=== PATIENT | female | born 1985 | race Hispanic/Latino ===

== ENCOUNTER 2021-06-16 09:33 | Emergency (ER) | payer BC ==
--- OUTSIDE RECORDS SUMMARY | 2021-06-16 09:41 | XMS REPORT | Continuity of Care Document ---
:1985 Author Organization [facility] t Address [address] [place] [address] Care Team Providers Name Role Phone Jo Ann Christine MD Attending Clinician Fazal Thompson Attending Clinician Payers Payer Name Policy Type Policy Number Effective Date Expiration Date Kecia BRIAN O [id number] 2015 00:00:00 Problems Condition Condition Condition Status Onset Resolution Last Treating Co mments Source Name Details Category Date Date Treatment Clinician Date Prediabete Prediabete Disease Active U nivers s s 7-27 ity of 00:00: [address] Cellulitis Cellulitis Disease Active U nivers 7-18 ity of 00:00: [address] Obesity Obesity Disease Active Univers 7-18 ity of 00:00: [address] Fever Fever Disease Active Univers 7-17 ity of 00:00: [address] Allergies, Adverse Reactions, Alerts Allergy Allergy Status Severity Reaction(s) Onset Inactive Treating Comm ents Source Name Type Date Date Clinician NO KNOWN Drug Active Univers ALLERGIE Class ity of S [facility] Social History Social Habit Start Date Stop Date Quantity Comments Source Exposure to Not sure [facility] SARS-CoV-2 [facility] (event) Branch Tobacco use and 2020-09-25 2020-09-25 Never used Universit y of exposure 00:00:00 00:00:00 [facility] Alcohol intake 2020-09-25 2020-09-25 Current University of 00:00:00 00:00:00 non-drinker of [facility] alcohol Branch (finding) Sex Ass[birth year] At [birth year] Universit y of 00:00:00 00:00:00 [facility] Smoking Status Start Date Stop Date Source Never smoker [facility] Medications Ordered Filled Start Stop Current Ordering Indication Dosage Frequency Signature Comments Components Source Medication Medication Date Date Medication? Clinician (SIG) Name Name cefTRIAXone 2020- No 1000mg 1,000 mg, Univers (ROCEPHIN) 09-26-16 IV ity of 1,000 mg in 02:30: 14:29 [facility], [place] NaCl 0.9% 00 :00 ONCE, 1 Medical (NS) 50 mL dose, [facility] ch MINI-BAG 09/25/20 at 2130, 50 mL
Reas on for Anti-Infec tive: Documented Infection< br>Documen tre Infection Site: Urine
D uration of Therapy: 7 days NaCl 0.9% 2020- No 1000mL at 999 Uni vers (NS) bolus 09-25-16 mL/hr, ity of infusion 23:00: 01:27 1,000 mL, [place] as 1,000 mL 00 :00 IV Medical Infusion, Branch ONCE, 1 dose, Nguyen 09/25/20 at 1800, WILD cefdinir 2020- No [id number] 300mg Take 1 Univers 300 mg 09-25 capsule by ity of capsule 00:00: 04:59 mouth 2 [place] 00 :00 (two) Medical times [place] daily for 7 days. sulfamethox 2018- Yes 1{tbl} Take 1 Un meme azole-trime 7-07 tablet by ity of thoprim 00:00: mouth [place] 800-160 mg 00 every 12 Medic al per tablet (twelve) Branc h hours. silver 2018-0 Yes Apply to [facility] sulfADIAZIN 7-07 area(s) 2 ity of E 1 % cream 00:00: (two) [place] 00 times [facility] daily. Branch sulfamethox 2018- Yes 1{tbl} Take 1 Un meme azole-trime 7-07 tablet by ity of thoprim 00:00: mouth [place] 800-160 mg 00 every 12 Medic al per tablet (twelve) Branc h hours. silver 2018-0 Yes Apply to [facility] sulfADIAZIN 7-07 area(s) 2 ity of E 1 % cream 00:00: (two) [place] 00 times Medical daily. Branch ciprofloxac 2018-0 Yes 500mg Take 1 Uni vers in HCl 500 1-25 tablet by ity of mg tablet 00:00: mouth 2 00 (two) Medical times Branch daily. ciprofloxac 2018-0 Yes 500mg Take 1 Uni vers in HCl 500 1-25 tablet by ity of mg tablet 00:00: mouth 2 00 (two) Medical times Branch daily. phenazopyri 2017-0 Yes 200mg Take 1 Uni vers dine 200 mg 7-30 tablet by ity of tablet 00:00: mouth 3 00 (three) Medical times Branch daily. phenazopyri 2017-0 Yes 200mg Take 1 Uni vers dine 200 mg 7-30 tablet by ity of tablet 00:00: mouth 3 00 (three) Medical times Branch daily. Immunizations Ordered Filled Immunization Date Status Comments [facility] e Immunization Name Name SARS-COV-2 COVID-19 2020-11-09 Completed Unive rsity of MODERNA VACCINE 00:00:00 [facility] HEPLISAV HEP B, 2020-01-29 Completed Universit y of ADULT 2 DOSE, IM 00:00:00 [facility] Influenza Virus 2020-01-29 Completed Universit y of Vaccine 00:00:00 [facility] Pneumococcal 2020-01-29 Completed University o f Polysaccharide, 00:00:00 [facility] PPSV23 (PNEUMOVAX) [place] HEPLISAV HEP B, 2020-01-29 Completed Universit y of ADULT 2 DOSE, IM 00:00:00 [facility] Influenza Virus 2020-01-29 Completed Universit y of Vaccine 00:00:00 [facility] Pneumococcal 2020-01-29 Completed University o f Polysaccharide, 00:00:00 [facility] PPSV23 (PNEUMOVAX) Branch Influenza Virus 2019-04-05 Completed Universit y of Vaccine Recomb Quad 00:00:00 [facility] IM, Preserv and ABX Branc h Free 18-64 YRS Influenza Virus 2019-04-05 Completed Universit y of Vaccine Recomb Quad 00:00:00 [facility] IM, Preserv and ABX Branc h Free 18-64 YRS Influenza Virus 2018-02-24 Completed Universit y of Vaccine Quad IM 3+ 00:00:00 [facility] Influenza Virus 2018-02-24 Completed Universit y of Vaccine Quad IM 3+ 00:00:00 [facility] TDAP 2017-05-26 Completed University of 00:00:00 [facility] Influenza Virus 2017-05-26 Completed Universit y of Vaccine Quad IM 3+ 00:00:00 [facility] Influenza Virus 2017-05-26 Completed Universit y of Vaccine 00:00:00 [facility] TDAP 2017-05-26 Completed University of 00:00:00 [facility] Influenza Virus 2017-05-26 Completed Universit y of Vaccine Quad IM 3+ 00:00:00 [facility] Influenza Virus 2017-05-26 Completed Universit y of Vaccine 00:00:00 [facility] Influenza Virus 2016-02-25 Completed Universit y of Vaccine Quad IM 3+ 00:00:00 [facility] Influenza Virus 2016-02-25 Completed Universit y of Vaccine Quad IM 3+ 00:00:00 [facility] Vital Signs Vital Name Observation Time Observation Value Comments Source Systolic blood 2020-09-26 01:51:00 138 mm[Hg] Univer sity of pressure [facility] Diastolic blood 2020-09-26 01:51:00 77 mm[Hg] Unive rsity of pressure [facility] Heart rate 2020-09-26 01:51:00 88 /min [facility] Respiratory rate 2020-09-26 01:51:00 17 /min [facility] Oxygen saturation in 2020-09-26 01:51:00 99 /min [facility] Arterial blood by [facility] Pulse oximetry Branch Body temperature 2020-09-25 22:02:00 36.94 Danya [facility] Body weight 2020-09-25 22:02:00 149.687 kg [facility] BMI 2020-09-25 22:02:00 60.36 kg/m2 [facility] Procedures Procedure Date / Time Performed Performing Clinician Sourc e COMP. METABOLIC PANEL 2020-09-26 00:09:00 Gerardo Evans [facility] ([id number]) [facility] CBC WITH DIFF 2020-09-26 00:09:00 Gerardo Evans [facility] URINALYSIS 2020-09-26 00:09:00 Gerardo Evans [facility] COVID-19 (ID NOW RAPID 2020-09-26 00:09:00 Gerardo Evans [facility] TESTING) [facility] NOTICE OF PRIVACY 2020-09-25 21:56:12 Doctor Unassigned, No Univ [facility] PRACTICES Name Medical Branch Encounters Start End Encounter Admission Attending Care Care Encounter Source Date/Time Date/Time Type Type Clinicians Facility Department ID 2021-04-12 Emergency [facility] [id number] [facility] 13:15:36 ity of [facility] 2020-11-11 2020-11-11 Telephone Christine, [facility] [id number] Univers 00:00:00 00:00:00 Melanie Baxter [id number] ity [facility] [id number] [facility] [id number] Sc dical [address] Building 2020-09-25 2020-09-25 Emergency [facility] [id number] [facility] 17:03:00 20:55:00 Gerardo Baxter [id number] ity of [place] [id number] [facility] [id number] [address] Results Test Description Test Time Test Comments Results Result Comments Source Urinalysis 2020-09-26 00:53:58 Test Item Value Reference Range Interpretation Comme nts APPEARANCE (test code = Hazy Clear A 0265701322) COLOR (test code = 6367697476) Yellow Yellow PH (test code = 6394409793) 4.8-8.0 SP GRAVITY (test code = 1.003-1.030 5332298044) GLU U QUAL (test code = Normal Normal 4865267219) BLOOD (test code = 3948423079) Negative Negative KETONES (test code = 9216202033) Negative Negative PROTEIN (test code = 2887-8) Negative Negative UROBILIN (test code = 4.0 mg/dL Normal A 8536232906) BILIRUBIN (test code = Negative Negative 2656963011) NITRITE (test code = 8719667370) Positive Negative A LEUK SADIE (test code = Negative Negative 4189703089) RBC/HPF (test code = 3335179905) See_Comment [Automated message] The system which ge nerated this result transmit tre reference range: 0 - 3 HP F. The reference range was not used to interpret th is result as normal/abnormal . WBC/HPF (test code = 8622694009) See_Comment H [Automated message] The system which ge nerated this result transmit tre reference range: 0 - 5 HP F. The reference range was not used to interpret th is result as normal/abnormal . BACTERIA (test code = Many Negative A 8963716991) MUCOUS (test code = 3139115950) Slight Negative LPF A AMORPHOUS (test code = Rare Rare HPF 6796062109) SQ EPITH (test code = HPF 1590967370) Lab Interpretation (test code = Abnormal 27736-7) [facility]. METABOLIC PANEL (26513)2020-09-26 00:48:58 Test Item Value Reference Range Interpretation Comments NA (test code = 144 mmol/L 135-145 4595631499) K (test code = 3.5 mmol/L 3.5-5.0 9778585278) CL (test code = 107 mmol/L 98-108 2193498944) CO2 TOTAL (test code = 30 mmol/L 23-31 9171231209) AGAP (test code = 2-16 1395772239) BUN (test code = 12 mg/dL 7-23 5824991026) GLUCOSE (test code = 80 mg/dL 70-110 8620913580) CREATININE (test code = 0.69 mg/dL 0.50-1.04 2330499241) TOTAL BILI (test code = 0.5 mg/dL 0.1-1.6 0058597388) CALCIUM (test code = 9.0 mg/dL 8.6-10.6 6968261208) T PROTEIN (test code = 7.5 g/dL 6.3-8.2 4377308022) ALBUMIN (test code = 4.2 g/dL 3.5-5.0 7432552892) ALK PHOS (test code = 80 U/L 34-122 0705205913) ALTv (test code = 42 U/L 5-35 H 1742-6) AST(SGOT) (test code = 36 U/L 13-40 9561621443) eGFR (test code = mL/min/1.73m2 4564243782) PADMA (test code = PADMA) Association of Glomerular Filtration Rate (GFR) and Staging of Kidney Disease* + --+ --+ ------+| GFR (mL/min/1.73 m2) ?| With Kidney Damage ?| ?Without Kidney Damage+ --------+ --------+ +| ?>90 ?| ?Stage one ?| ? Normal ?+ ---+ ---+ -------+| ?60-89 ?| ?Stage two ?| ? Decreased GFR ? + --+ --+ ------+| ?30-59 ?| ?Stage three ?| ? Stage three ? + --+ --+ ------+| ?15-29 ?| ?Stage four ? | ? Stage four ?+ ---+ ---+ -------+| ?<15 (or dialysis) ? ?| ?Stage five ? | ? Stage five ?+ ---+ ---+ -------+ *Each stage assumes the associated GFR level has been in effect for at least three months. ?Stages 1 to 5, with or without kidney disease, indicate chronic kidney disease. Notes: Determination of stages one and two (with eGFR >59mL/min/1.73 m2) requires estimation of kidney damage for at least three months as defined by structural or functional abnormalities of the kidney, manifested by either:Pathological abnormalities or Markers of kidney damage (including abnormalities in the composition of the blood or urine or abnormalities in imaging tests). Lab Interpretation Abnormal (test code = 45331-8) [facility] (ID NOW RAPID TESTING)2020-09-26 00:43:40 Test Item Value Reference Range Interpretation Comments SARS-CoV-2 Rapid ID NOW Not Detected Not Detected (test code = 26731-5) PADMA (test code = PADMA) ID NOW COVID-19 Assay is an isothermal nucleic acid amplification test intended for the qualitative detection of nucleic acid from SARS-CoV-2 viral RNA in nasopharyngeal (INDIVIDUAL PENSION CONSULTANT) specimens. It is used under Emergency Use Authorization (EUA) by FDA. The limit of detection (LOD) of the assay is 125 Genome Equivalents/mL. A positive result is indicative of the presence of SARS-CoV-2 RNA. ?Clinical correlation with patient history and other diagnostic information is necessary to determine patient infection status. A negative (Not Detected) result does not preclude SARS-CoV-2 infection. In patients with clinical symptoms and other tests that are consistent with SARS-CoV-2 infection, negative results should be treated as presumptive negative and a new specimen should be tested with alternative PCR molecular test. Invalid: Please collect a new specimen for repeat patient testing if clinically indicated. Lab Interpretation Normal (test code = 33211-8) [facility] with [id number] 00:38:16 Test Item Value Reference Range Interpretation Comments WBC (test code = See_Comment [Automated 3759-2) message] The sy stem which generated this result transmitted reference range : 4.30 - 11.10 10*3/?L. The reference range was not used to interpret this result as normal/abnormal . RBC (test code = See_Comment [Automated 929-8) message] The sy stem which generated this result transmitted reference range : 3.93 - 5.25 10*6/?L. The reference range was not used to interpret this result as normal/abnormal . HGB (test code = 14.3 g/dL 11.6-15.0 718-7) HCT (test code = 45.4 % 35.7-45.2 H 4544-3) MCV (test code = 90.3 fL 80.6-95.5 787-2) MCH (test code = 28.4 pg 25.9-32.8 785-6) MCHC (test code = 31.5 g/dL 31.6-35.1 L 786-4) RDW-SD (test code = 43.3 fL 39.0-49.9 92662-2) RDW-CV (test code = 13.2 % 12.0-15.5 788-0) PLT (test code = See_Comment [Automated 777-3) message] The sy stem which generated this result transmitted reference range : 166 - 358 10*3/ ?L. The reference r gigi was not used to interpret this result as normal/abnormal . MPV (test code = 9.6 fL 9.5-12.9 15826-8) NRBC/100 WBC (test See_Comment [Automat ed code = 3554206151) message] The system which generated this result transmitted reference range : 0.0 - 10.0 /100 WBCs. The refer ence range was not u sed to interpret th is result as normal/abnormal . NRBC x10^3 (test code <0.01 See_Comment [Auto mated = 8064501152) message] The s ystem which generated this result transmitted reference range : 10*3/?L. The reference range was not used to interpret this result as normal/abnormal . GRAN MAT (NEUT) % 51.4 % (test code = 770-8) IMM GRAN % (test code 0.30 % = 2419377045) LYMPH % (test code = 38.9 % 736-9) MONO % (test code = 8.0 % 5905-5) EOS % (test code = 0.9 % 713-8) BASO % (test code = 0.5 % 706-2) GRAN MAT x10^3(ANC) 4.55 10*3/uL 1.88-7.09 (test code = 9802386274) IMM GRAN x10^3 (test 0.03 10*3/uL 0.00-0.06 code = 5588586801) LYMPH x10^3 (test code 3.44 10*3/uL 1.32-3.29 H = 731-0) MONO x10^3 (test code 0.71 10*3/uL 0.33-0.92 = 742-7) EOS x10^3 (test code = 0.08 10*3/uL 0.03-0.39 711-2) BASO x10^3 (test code 0.04 10*3/uL 0.01-0.07 = 704-7) Lab Interpretation Abnormal (test code = 45602-7) [facility]"
--- NOTE | 2021-06-16 10:50 | RAD REPORT ---
EXAM DESCRIPTION: Zahra Chavez And Monica (2 Views)06/16/2021 10:18 am CLINICAL HISTORY: Cough COMPARISON: May 2021 FINDINGS: The lungs appear clear of acute infiltrate. The heart is normal size IMPRESSION: No acute abnormalities displayed
[2021-06-16 11:13] LABS: SARS-COV-2 RT PCR POSITIVE (NEGATIVE)
--- NOTE | 2021-06-16 11:18 | ER ---
Nurse's Notes [facility] Name: Natalie Estrella Age: 36 yrs Sex: Female : 1985 Arrival Date: 06/16/2021 Time: 09:36 Bed Waiting Private MD: Diagnosis: Coronavirus infection, unspecified Presentation: 06/16 10:02 Chief complaint: Patient states: Here last week with bronchitis. Still has fever, REYES, ll1 fatigue today. Coronavirus screen: Vaccine status: Patient reports receiving the 2nd dose of the covid vaccine. Client denies travel out of the [place] in the last 14 days. congestion, cough unrelated to allergies, fatigue, fever, headache, Client presents with at least one sign or symptom that may indicate coronavirus-19. Standard/surgical mask placed on the client. Ebola Screen: Patient denies travel to an Ebola-affected area in the 21 days before illness onset. Initial Sepsis Screen: Does the patient meet any 2 criteria? HR > 90 bpm. No. Patient's initial sepsis screen is negative. Does the patient have a suspected source of infection? Yes: Productive cough/pneumonia. Risk Assessment: Do you want to hurt yourself or someone else? Patient reports no desire to harm self or others. Onset of symptoms was June 08, 2021. 10:02 Method Of Arrival: Ambulatory ll1 10:02 Acuity: LIO 4 ll1 Triage Assessment: 10:04 Headache History: Denies prior headaches. General: Appears in no apparent distress. ll1 Behavior is calm, cooperative, appropriate for age. Pain: Complains of pain in head Pain currently is 8 out of 10 on a pain scale. Pain began 1 day ago. Neuro: Level of Consciousness is awake, alert, obeys commands, Reports headache. 10:04 Respiratory: Reports cough that is. ll1 11:30 Pain: Also complains of no other associated symptoms. 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 - Social history:: Smoking status: Patient denies any tobacco usage or history of. Screenin:05 Abuse screen: Denies threats or abuse. Nutritional screening: No deficits noted. ll1 Tuberculosis screening: No symptoms or risk factors identified. 11:30 Fall Risk Total Xavier Fall Scale indicates No Risk (0-24 pts). ll1 Assessment: 11:00 Reassessment: No changes from previously documented assessment. Patient and/or family ll1 updated on plan of care and expected duration. Pain level reassessed. Patient is alert, oriented x 3, equal unlabored respirations, skin warm/dry/pink. Vital Signs: 10:02 BP 122 / 58; Pulse 102; Resp 18; Temp 97.6; Pulse Ox 99% ; Weight 156.49 kg; Height 5 ll1 ft. 2 in. (157.48 cm); Pain 3/10; 10:02 Body Mass Index 63.10 (156.49 kg, 157.48 cm) ll1 ED Course: 09:36 Patient arrived in ED. as 10:02 Arm band placed on. ll1 10:03 Cornelia Ross FNP-C is [facility]. kb 10:03 Timi Johnson MD is Attending Physician. kb 10:04 Triage completed. ll1 10:17 Chest Pa And Lat (2 Views) XRAY In Process Unspecified. EDMS 11:30 Patient has correct armband on for positive identification. Cardiac monitoring not ll1 applicable on this patient. 11:30 No provider procedures requiring assistance completed. Patient did not have IV access ll1 during this emergency room visit. Administered Medications: No medications were administered Outcome: 11:17 Discharge ordered by . kb 11:30 Patient left the ED. ll1 11:30 Discharged to home ambulatory. ll1 11:30 Condition: stable 11:30 Discharge instructions given to patient, Instructed on discharge instructions, follow up and referral plans. Demonstrated understanding of instructions, follow-up care. Signatures: Dispatcher [employer] EDMS Cornelia Ross FNP-C FNP-Ckb Martinez, Amelia as Lewis, Lynsay, RN RN ll1 Corrections: (The following items were deleted from the chart) 10:04 10:02 Pulse 102bpm; Resp 18bpm; Pulse Ox 99%; Temp 97.6F; 156.49 kg; Height 5 ft. 2 ll1 in.; BMI: 63.1; Pain 3/10; ll1 10:07 10:02 Acuity: LIO 3 ll1 ll1
--- NOTE | 2021-06-16 11:18 | EDPHYS ---
Physician Documentation [facility] Name: Natalie Estrella Age: 36 yrs Sex: Female : 1985 Arrival Date: 06/16/2021 Time: 09:36 Bed Waiting Private MD: ED Physician Timi Johnson HPI: 06/16 10:27 This 36 yrs old Female presents to ER via Ambulatory with complaints of Fever, kb Headache. 10:27 The patient or guardian reports cough, that is intermittent, described as moderate, flu kb symptoms, low-grade fever. Onset: The symptoms/episode began/occurred this morning. Severity of symptoms: At their worst the symptoms were moderate, in the emergency department the symptoms are unchanged. Modifying factors: The symptoms are alleviated by nothing, the symptoms are aggravated by nothing. Associated signs and symptoms: Pertinent positives: fever, rhinorrhea, Pertinent negatives: chest pain, diarrhea, ear ache, nausea, sore throat, vomiting. The patient has not experienced similar symptoms in the past. The patient has not recently seen a physician. 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 - Social history:: Smoking status: Patient denies any tobacco usage or history of. ROS: 10:24 Cardiovascular: Negative for chest pain, palpitations, and edema. kb 10:24 Constitutional: Positive for fever. 10:24 ENT: Positive for rhinorrhea, sinus congestion. 10:24 Respiratory: Positive for cough. 10:24 All other systems are negative. Exam: 10:27 Constitutional: This is a well developed, well nourished patient who is awake, alert, kb and in no acute distress. Head/Face: Normocephalic, atraumatic. ENT: Moist Mucous membranes Cardiovascular: Regular rate and rhythm with a normal S1 and S2. No gallops, murmurs, or rubs. No pulse deficits. Respiratory: Respirations even and unlabored. No increased work of breathing. Talking in full sentences Skin: Warm, dry with normal turgor. Normal color. MS/ Extremity: Pulses equal, no cyanosis. Neurovascular intact. Full, normal range of motion. Neuro: Awake and alert, GCS 15, oriented to person, place, time, and situation. Moves all extremities. Normal gait. Psych: Awake, alert, with orientation to person, place and time. Behavior, mood, and affect are within normal limits. Vital Signs: 10:02 BP 122 / 58; Pulse 102; Resp 18; Temp 97.6; Pulse Ox 99% ; Weight 156.49 kg; Height 5 ll1 ft. 2 in. (157.48 cm); Pain 3; 10:02 Body Mass Index 63.10 (156.49 kg, 157.48 cm) ll1 MDM: 10:03 Patient medically screened. kb 10:27 Data reviewed: vital signs, nurses notes. Data interpreted: Pulse oximetry: on room air kb is 99 %. Interpretation: normal. 11:16 Counseling: I had a detailed discussion with the patient and/or guardian regarding: the kb historical points, exam findings, and any diagnostic results supporting the discharge/admit diagnosis, lab results, radiology results, the need for outpatient follow up, a family practitioner, to return to the emergency department if symptoms worsen or persist or if there are any questions or concerns that arise at home. 06/16 10:04 Order name: COVID-19/FLU A+B (Document "Date of Onset" if Symptomatic); Complete Time: kb 11:16 06/16 10:04 Order name: Chest Pa And Lat (2 Views) XRAY; Complete Time: 10:53 kb Administered Medications: No medications were administered Disposition: 12:07 Co-signature as Attending Physician, Timi Johnson MD. rn Disposition Summary: 06/16/21 11:17 Discharge Ordered Location: Home kb Condition: Stable kb Diagnosis - Coronavirus infection, unspecified kb Followup: kb - With: Emergency Department - When: As needed - Reason: Worsening of condition Followup: kb - With: Private Physician - When: 2 - 3 days - Reason: Recheck today's complaints, Continuance of care, Re-evaluation by your physician Discharge Instructions: - Discharge Summary Sheet kb - Viral Respiratory Infection, [id number] kb - COVID-19 kb Forms: - Medication Reconciliation Form kb - Thank You Letter kb - Antibiotic Education kb - Prescription Opioid Use kb Signatures: Dispatcher [employer] EDCornelia Sanchez CASEWORK MANAGER-C CASEWORK MANAGER-Ckb Timi Johnson MD MD rn Ashutosh aWrren RN RN ll1
[2021-06-16 11:41] VITALS: BP 122/58; TEMP 97.6; O2SAT 99
== END 2021-06-16 11:30 | disposition home or self-care (01) ==
LOC: ER 09:33
DX: U07.1 COVID-19 (principal); E11.9 Type 2 diabetes mellitus without complications
CPT/HCPCS: 0240U; 71046; 99283

== ENCOUNTER 2021-09-14 10:08 | Emergency (ER) | payer BC ==
--- OUTSIDE RECORDS SUMMARY | 2021-09-14 10:14 | XMS REPORT | Continuity of Care Document ---
:1985 Author Organization [facility] t Address [facility] [place] [address] Care Team Providers Name Role Phone Pcp, Does Not Have A Primary Care Physician Jo Ann Christine MD Attending Clinician Fazal Thompson Attending Clinician Payers Payer Name Policy Type Policy Number Effective Date Expiration Date Kecia BRIAN O [id number] 2015 00:00:00 Problems Condition Condition Condition Status Onset Resolution Last Treating Co mments Source Name Details Category Date Date Treatment Clinician Date Prediabete Prediabete Disease Active U nivers s s 7-27 ity of 00:00: [address] Cellulitis Cellulitis Disease Active U nivers 7-18 ity of 00:00: [address] Obesity Obesity Disease Active Univers 7-18 ity of 00:00: [address] Fever Fever Disease Active Univers 7-17 ity of 00:00: [address] Allergies, Adverse Reactions, Alerts Allergy Allergy Status Severity Reaction(s) Onset Inactive Treating Comm ents Source Name Type Date Date Clinician NO KNOWN Drug Active Univers ALLERGIE Class ity of S [facility] Social History Social Habit Start Date Stop Date Quantity Comments Source Exposure to Not sure [facility] SARS-CoV-2 (event) Medica l Branch Alcohol intake 2020-09-25 2020-09-25 0 /d [facility] 00:00:00 00:00:00 Medical Branch Tobacco use and 2015-12-28 2015-12-28 Never used [facility] exposure 00:00:00 00:00:00 [facility] Branch Sex Ass[birth year] [facility] 00:00:00 00:00:00 Medical Branch Smoking Status Start Date Stop Date Source Never smoker [facility] Branch Medications Ordered Filled Start Stop Current Ordering Indication Dosage Frequency Signature Comments Components Source Medication Medication Date Date Medication? Clinician (SIG) Name Name cefTRIAXone 2020- No 1000mg 1,000 mg, Univers (ROCEPHIN) 09-2616 IV ity of 1,000 mg in 02:30: 14:29 [place], [place] NaCl 0.9% 00 :00 ONCE, 1 Medical (NS) 50 mL dose, [facility] ch MINI-BAG 09/25/20 at 2130, 50 mL
Reas on for Anti-Infec tive: Documented Infection< br>Documen tre Infection Site: Urine
D uration of Therapy: 7 days NaCl 0.9% 2020- No 1000mL at 999 Uni vers (NS) bolus 09-25-16 mL/hr, ity of infusion 23:00: 01:27 1,000 mL, [place] as 1,000 mL 00 :00 IV Medical Infusion, Branch ONCE, 1 dose, [facility] 09/25/20 at 1800, [facility] cefdinir 2020- No [id number] 300mg Take 1 Univers 300 mg 09-25 capsule by ity of capsule 00:00: 04:59 mouth 2 [place] 00 :00 (two) Medical times Branch daily for 7 days. sulfamethox Yes 1{tbl} Take 1 Un meme azole-trime 7-07 tablet by ity of thoprim 00:00: mouth [place] 800-160 mg 00 every 12 Medic al per tablet (twelve) Branc h hours. silver Yes Apply to [facility] sulfADIAZIN 7-07 area(s) 2 ity of E 1 % cream 00:00: (two) [place] 00 times Medical daily. Branch sulfamethox 2018- Yes 1{tbl} Take 1 Un meme azole-trime 7-07 tablet by ity of thoprim 00:00: mouth [place] 800-160 mg 00 every 12 Medic al per tablet (twelve) Branc h hours. silver 2018-0 Yes Apply to [facility] s sulfADIAZIN 7-07 area(s) 2 ity of E 1 % cream 00:00: (two) 00 times Medical daily. Branch sulfamethox 2018-0 Yes 1{tbl} Take 1 Un meme azole-trime 7-07 tablet by ity of thoprim 00:00: mouth [place] 800-160 mg 00 every 12 Medic al per tablet (twelve) Branc h hours. silver 2018-0 Yes Apply to [facility] s sulfADIAZIN 7-07 area(s) 2 ity of E 1 % cream 00:00: (two) 00 times Medical daily. Branch ciprofloxac 2018-0 Yes 500mg Take 1 Uni vers in HCl 500 1-25 tablet by ity of mg tablet 00:00: mouth 2 (two) Medical times Branch daily. ciprofloxac 2018-0 Yes 500mg Take 1 Uni vers in HCl 500 1-25 tablet by ity of mg tablet 00:00: mouth 2 (two) Medical times Branch daily. ciprofloxac 2018-0 Yes 500mg Take 1 Uni vers in HCl 500 1-25 tablet by ity of mg tablet 00:00: mouth 2 (two) Medical times Branch daily. phenazopyri 2017-0 Yes 200mg Take 1 Uni vers dine 200 mg 7-30 tablet by ity of tablet 00:00: mouth 3 (three) Medical times Branch daily. phenazopyri 2017-0 Yes 200mg Take 1 Uni vers dine 200 mg 7-30 tablet by ity of tablet 00:00: mouth 3 (three) Medical times Branch daily. phenazopyri 2017-0 Yes 200mg Take 1 Uni vers dine 200 mg 7-30 tablet by ity of tablet 00:00: mouth 3 (three) Medical times Branch daily. Immunizations Ordered Filled Immunization Date Status Comments [facility] e Immunization Name Name HEPLISAV HEP B, 2021-08-13 Completed Universit y of ADULT 2 DOSE, IM 00:00:00 [facility] [place] [facility] dical Branch Pneumococcal 20 2021-08-13 Completed Universit y of Conjugate, PCV20 00:00:00 [place] [facility] dical (Prevnar 20) [place] SARS-COV-2 COVID-19 2020-11-09 Completed Unive rsity of MODERNA VACCINE 00:00:00 [facility] SARS-COV-2 COVID-19 2020-11-09 Completed Unive rsity of MODERNA VACCINE 00:00:00 [facility] HEPLISAV HEP B, 2020-01-29 Completed Universit y of ADULT 2 DOSE, IM 00:00:00 [facility] Influenza Virus 2020-01-29 Completed Universit y of Vaccine 00:00:00 [facility] Pneumococcal 2020-01-29 Completed University o f Polysaccharide, 00:00:00 [facility] PPSV23 (PNEUMOVAX) Branch HEPLISAV HEP B, 2020-01-29 Completed Universit y of ADULT 2 DOSE, IM 00:00:00 [facility] Influenza Virus 2020-01-29 Completed Universit y of Vaccine 00:00:00 [facility] Pneumococcal 2020-01-29 Completed University o f Polysaccharide, 00:00:00 [facility] PPSV23 (PNEUMOVAX) Branch HEPLISAV HEP B, 2020-01-29 Completed Universit y of ADULT 2 DOSE, IM 00:00:00 [facility] Influenza Virus 2020-01-29 Completed Universit y of Vaccine 00:00:00 [facility] Pneumococcal 2020-01-29 Completed University o f Polysaccharide, 00:00:00 [facility] PPSV23 (PNEUMOVAX) Branch Influenza Virus 2019-04-05 Completed Universit y of Vaccine Recomb Quad 00:00:00 [facility] IM, Preserv and ABX Branc h Free 18-64 YRS Influenza Virus 2019-04-05 Completed Universit y of Vaccine Recomb Quad 00:00:00 [facility] IM, Preserv and ABX Branc h Free 18-64 YRS Influenza Virus 2019-04-05 Completed Universit y of Vaccine Recomb Quad 00:00:00 [facility] IM, Preserv and ABX Branc h Free 18-64 YRS Influenza Virus 2018-02-24 Completed Universit y of Vaccine Quad IM 3+ 00:00:00 [facility] Influenza Virus 2018-02-24 Completed Universit y of Vaccine Quad IM 3+ 00:00:00 [facility] Influenza Virus 2018-02-24 Completed Universit y of Vaccine Quad IM 3+ 00:00:00 [facility] Influenza Virus 2017-05-26 Completed Universit y of Vaccine Quad IM 3+ 00:00:00 [facility] Influenza Virus 2017-05-26 Completed Universit y of Vaccine 00:00:00 [facility] TDAP 2017-05-26 Completed University of 00:00:00 [facility] Influenza Virus 2017-05-26 Completed Universit y of Vaccine Quad IM 3+ 00:00:00 [facility] Influenza Virus 2017-05-26 Completed Universit y of Vaccine 00:00:00 [facility] TDAP 2017-05-26 Completed University of 00:00:00 [facility] Influenza Virus 2017-05-26 Completed Universit y of Vaccine Quad IM 3+ 00:00:00 [facility] Influenza Virus 2017-05-26 Completed Universit y of Vaccine 00:00:00 [facility] TDAP 2017-05-26 Completed University of 00:00:00 [facility] Influenza Virus 2016-02-25 Completed Universit y of Vaccine Quad IM 3+ 00:00:00 [facility] Influenza Virus 2016-02-25 Completed Universit y of Vaccine Quad IM 3+ 00:00:00 [facility] Influenza Virus 2016-02-25 Completed Universit y of Vaccine Quad IM 3+ 00:00:00 [facility] Vital Signs Vital Name Observation Time Observation Value Comments Source Systolic blood 2020-09-26 01:51:00 138 mm[Hg] Univer sity of pressure [facility] Diastolic blood 2020-09-26 01:51:00 77 mm[Hg] Unive rsity of pressure [facility] Heart rate 2020-09-26 01:51:00 88 /min [facility] Respiratory rate 2020-09-26 01:51:00 17 /min [facility] Oxygen saturation in 2020-09-26 01:51:00 99 /min [facility] Arterial blood by [facility] Pulse oximetry [place] Body temperature 2020-09-25 22:02:00 36.94 [facility] weight 2020-09-25 22:02:00 149.687 kg [facility] BMI 2020-09-25 22:02:00 60.36 kg/m2 [facility] Procedures Procedure Date / Time Performed Performing Clinician Duc e COMPXander METABOLIC PANEL 2020-09-26 00:09:00 [id number] CBC WITH DIFF 2020-09-26 00:09:00 Gerardo Evans [facility] URINALYSIS 2020-09-26 00:09:00 Gerardo Evans [facility] COVID-19 (ID NOW RAPID 2020-09-26 00:09:00 Gerardo Evans U [facility] TESTING) [facility] NOTICE OF PRIVACY 2020-09-25 21:56:12 Doctor Unassigned, No [facility] PRACTICES Name [facility] Encounters Start End Encounter Admission Attending Care Care Encounter Source Date/Time Date/Time Type Type Clinicians Facility Department ID 2021-04-12 Emergency [facility] [id number] [facility] 13:15:36 ity of [facility] 2021-08-14 2021-08-14 Telephone [facility] [id number] [facility] 00:00:00 00:00:00 Melanie JAY [id number] it[facility] of [facility] [id number] [phone] [facility] 044 [facility] 2020-11-11 2020-11-11 Telephone [facility] [id number] [facility] 00:00:00 00:00:00 Melanie Jay [id number] [id number] [phone] [facility] 231 [facility] 2020-09-25 2020-09-25 Emergency [facility] [id number] Univers 17:03:00 20:55:00 Gerardo Jay [id number] [id number] [id number] [address] Results Test Description Test Time Test Comments Results Result Comments Source Urinalysis 2020-09-26 00:53:58 Test Item Value Reference Range Interpretation Comme nts APPEARANCE (test code = Hazy Clear A 5602728407) COLOR (test code = 9037638469) Yellow Yellow PH (test code = 3055693864) 4.8-8.0 SP GRAVITY (test code = 1.003-1.030 9914172864) GLU U QUAL (test code = Normal Normal 6289953326) BLOOD (test code = 9683328515) Negative Negative KETONES (test code = 6325919158) Negative Negative PROTEIN (test code = 2887-8) Negative Negative UROBILIN (test code = 4.0 mg/dL Normal A 8212957018) BILIRUBIN (test code = Negative Negative 8684963992) NITRITE (test code = 9495991971) Positive Negative A LEUK SADIE (test code = Negative Negative 2915456228) RBC/HPF (test code = 8025594587) See_Comment [Automated message] The system which ge nerated this result transmit tre reference range: 0 - 3 HP F. The reference range was not used to interpret th is result as normal/abnormal . WBC/HPF (test code = 5431361480) See_Comment H [Automated message] The system which ge nerated this result transmit tre reference range: 0 - 5 HP F. The reference range was not used to interpret th is result as normal/abnormal . BACTERIA (test code = Many Negative A 3188685443) MUCOUS (test code = 7280312027) Slight Negative LPF A AMORPHOUS (test code = Rare Rare HPF 8933792063) SQ EPITH (test code = HPF 8039087955) Lab Interpretation (test code = Abnormal 30374-1) [facility]997[facility]2020-09-26 00:48:58 Test Item Value Reference Range Interpretation Comments NA (test code = 144 mmol/L 135-145 4277059913) K (test code = 3.5 mmol/L 3.5-5.0 2733846402) CL (test code = 107 mmol/L 98-108 2481118888) CO2 TOTAL (test code = 30 mmol/L 23-31 3352868596) AGAP (test code = 2-16 6093365847) BUN (test code = 12 mg/dL 7-23 1456286408) GLUCOSE (test code = 80 mg/dL 70-110 8343790210) CREATININE (test code = 0.69 mg/dL 0.50-1.04 8159618796) TOTAL BILI (test code = 0.5 mg/dL 0.1-1.7 0824613587) CALCIUM (test code = 9.0 mg/dL 8.6-10.6 6761883886) T PROTEIN (test code = 7.5 g/dL 6.3-8.2 2367945206) ALBUMIN (test code = 4.2 g/dL 3.5-5.0 7246358252) ALK PHOS (test code = 80 U/L 34-122 6204860326) ALTv (test code = 42 U/L 5-35 H 1741-6) AST(SGOT) (test code = 36 U/L 13-40 6697892092) eGFR (test code = mL/min/1.73m2 0709050059) PADMA (test code = PADMA) Association of [...] tests). Lab Interpretation Abnormal (test code = 24206-7) [facility] (ID NOW RAPID TESTING)2020-09-26 00:43:40 Test Item Value Reference Range Interpretation Comments SARS-CoV-2 Rapid ID NOW Not Detected Not Detected (test code = 99126-9) PADMA (test code = PADMA) ID NOW COVID-19 Assay is an isothermal nucleic acid amplification test intended for the qualitative detection of nucleic acid from SARS-CoV-2 viral RNA in nasopharyngeal (CLOTH GRADER) specimens. It is used under Emergency Use [...] indicated. Lab Interpretation Normal (test code = 93094-0) [facility] with [id number] 00:38:16 Test Item Value Reference Range Interpretation Comments WBC (test code = See_Comment [Automated 4190-2) message] The sy stem which generated this result transmitted reference range : 4.30 - 11.10 10*3/?L. The reference range was not used to interpret this result as normal/abnormal . RBC (test code = See_Comment [Automated 969-8) message] The sy stem which generated this [...] RDW-SD (test code = 43.3 fL 39.0-49.9 19640-3) RDW-CV (test code = 13.2 % 12.0-15.5 788-0) PLT (test code = See_Comment [Automated 777-3) message] The sy stem which generated this result transmitted reference range : 166 - 358 10*3/ ?L. The reference r gigi was not used to interpret this result as normal/abnormal . MPV (test code = 9.6 fL 9.5-12.9 97715-9) NRBC/100 WBC (test See_Comment [Automat ed code = 7546146879) message] The system which generated this result transmitted reference range : 0.0 - 10.0 /100 WBCs. The refer ence range was not u sed to interpret th is result as normal/abnormal . NRBC x10^3 (test code <0.01 See_Comment [Auto mated = 7585631912) message] The s ystem which generated this result transmitted reference range : 10*3/?L. The reference range was not used to interpret this result as normal/abnormal . GRAN MAT (NEUT) % 51.4 % (test code = 770-8) IMM GRAN % (test code 0.30 % = 7649739714) LYMPH % (test code = 38.9 % 736-9) MONO % (test code = 8.0 % 5905-5) EOS % (test code = 0.9 % 713-8) BASO % (test code = 0.5 % 706-2) GRAN MAT x10^3(ANC) 4.55 10*3/uL 1.88-7.09 (test code = 0610705350) IMM GRAN x10^3 (test 0.03 10*3/uL 0.00-0.06 code = 1110783554) LYMPH x10^3 (test code 3.44 10*3/uL 1.32-3.29 H = 731-0) MONO x10^3 (test code 0.71 10*3/uL 0.33-0.92 = 742-7) EOS x10^3 (test code = 0.08 10*3/uL 0.03-0.39 711-2) BASO x10^3 (test code 0.04 10*3/uL 0.01-0.07 = 704-7) Lab Interpretation Abnormal (test code = 98100-1) [facility]"
[2021-09-14] MEDS ORDERED: ACETAMINOPHEN 500 MG TAB ONE (10:36)
[2021-09-14] MEDS ORDERED: IBUPROFEN 400 MG TAB ONE (11:29)
[2021-09-14 12:02] LABS: SARS-COV-2 RT PCR NEGATIVE (NEGATIVE)
--- NOTE | 2021-09-14 12:36 | EDPHYS ---
Physician Documentation [facility] Name: Natalie Estrella Age: 36 yrs Sex: Female : 1985 Arrival Date: 09/14/2021 Time: 10:10 Bed 10 Private MD: ED Physician Timi Johnson HPI: 09/14 10:34 This 36 yrs old Female presents to ER via Ambulatory with complaints of Flu jmm Symptoms. 10:34 Onset: The symptoms/episode began/occurred gradually, 1 day(s) ago. Associated signs jmm and symptoms: Pertinent positives: fever, sore throat. It is unknown whether or not the patient has had similar symptoms in the past. This is a 36-year-old female with history of diabetes mellitus the presents emerged part with complaints of sore throat, chills, body aches beginning yesterday. Patient states she is not immunized for influenza. Denies vomiting, chest pain, shortness of breath.. Historical: - Allergies: 10:29 No Known Allergies; iw - PMHx: 10:29 diabetes mellitus; iw - PSHx: 10:29 section; hysterectomy; iw - Immunization history:: Client reports receiving the 2nd dose of the Covid vaccine. - Social history:: Smoking status: Patient denies any tobacco usage or history of. ROS: 10:34 Constitutional: Positive for body aches, fever. jmm 10:34 ENT: Positive for sore throat. 10:34 Respiratory: Positive for cough. 10:34 All other systems are negative. Exam: 10:34 Constitutional: This is a well developed, well nourished patient who is awake, alert, jmm and in no acute distress. Head/Face: atraumatic. Eyes: EOMI, no conjunctival erythema appreciated 10:34 Neck: Trachea midline, Supple Chest/axilla: Normal chest wall appearance and motion. Cardiovascular: Regular rate and rhythm. No edema appreciated Respiratory: Normal respirations, no respiratory distress appreciated Abdomen/GI: Non distended, soft Back: Normal ROM Skin: General appearance color normal MS/ Extremity: Moves all extremities, no obvious deformities appreciated, no edema noted to the lower extremities Neuro: Awake and alert Psych: Behavior is normal, Mood is normal, Patient is cooperative and pleasant 10:34 ENT: Posterior pharynx: Airway: normal, Tonsils: bilaterally enlarged, with erythema, erythema, that is moderate. Vital Signs: 10:28 BP 132 / 72; Pulse 110; Resp 18 S; Temp 100.6; Pulse Ox 100% on R/A; iw 11:10 Temp 101.7(O); iw MDM: 10:45 Patient medically screened. [facility] 12:35 Data reviewed: vital signs, nurses notes. Counseling: I had a detailed discussion with carlos the patient and/or guardian regarding: the historical points, exam findings, and any diagnostic results supporting the discharge/admit diagnosis, lab results, the need for outpatient follow up, to return to the emergency department if symptoms worsen or persist or if there are any questions or concerns that arise at home. ED course: Is alert nontoxic in appearance in the ED. Patient administered Bicillin in the ED. No signs peritonsillar abscess or Lynda's on evaluation. Patient advised follow-up PCP and otherwise given strict return precautions. Patient understood agrees plan of care.. 09/14 10:34 Order name: COVID-19/FLU A+B (Document "Date of Onset" if Symptomatic); Complete Time: [facility] 12:02 09/14 10:35 Order name: Strep; Complete Time: 11:58 5 Administered Medications: 10:36 Drug: Tylenol 1000 mg Route: PO; iw 11:30 Follow up: Response: No adverse reaction iw 11:30 Drug: Ibuprofen 400 mg Route: PO; iw 12:00 Follow up: Response: No adverse reaction; Pain is decreased iw 12:40 Drug: Bicillin L-A (penicillin G Benzathine) 1.2 million units Route: IM; Site: left iw gluteus; 12:55 Follow up: Response: No adverse reaction Disposition: 16:54 Co-signature as Attending Physician, Timi Johnson MD. rn Disposition Summary: 09/14/21 12:35 Discharge Ordered Location: Home [facility] Condition: Stable ashley Diagnosis - Streptococcal pharyngitis [facility] Followup: ashley - With: Private Physician - When: 2 - 3 days - Reason: Recheck today's complaints, Continuance of care, Re-evaluation by your physician Discharge Instructions: - Discharge Summary Sheet carlos - Strep Throat, Adult ashley Forms: - Medication Reconciliation Form ashley - Thank You Letter carlos - Antibiotic Education jmm - Prescription Opioid Use jmm - Work release form iw Signatures: Dispatcher [employer] Matthew Paz PA PA jmm Williams, Irene, JAYSHREE RN Timi Feliz MD MD rn
--- NOTE | 2021-09-14 12:36 | ER ---
Nurse's Notes [facility] Name: Natalie Estrella Age: 36 yrs Sex: Female : 1985 Arrival Date: 09/14/2021 Time: 10:10 Bed 10 Private MD: Diagnosis: Streptococcal pharyngitis Presentation: 09/14 10:28 Chief complaint: Patient states: fever at home and sore throat, headache, body aches, iw started yesterday. Coronavirus screen: Client presents with at least one sign or symptom that may indicate coronavirus-19. Ebola Screen: Patient negative for fever greater than or equal to 101.5 degrees Fahrenheit, and additional compatible Ebola Virus Disease symptoms Patient denies exposure to infectious person. Patient denies travel to an Ebola-affected area in the 21 days before illness onset. No symptoms or risks identified at this time. Initial Sepsis Screen: Does the patient meet any 2 criteria? No. Patient's initial sepsis screen is negative. Does the patient have a suspected source of infection? No. Patient's initial sepsis screen is negative. Risk Assessment: Do you want to hurt yourself or someone else? Patient reports no desire to harm self or others. Onset of symptoms was September 13, 2021. 10:28 Method Of Arrival: Ambulatory iw 10:28 Acuity: LIO 4 iw Historical: - Allergies: 10:29 No Known Allergies; iw - PMHx: 10:29 diabetes mellitus; iw - PSHx: 10:29 section; hysterectomy; iw - Immunization history:: Client reports receiving the 2nd dose of the Covid vaccine. - Social history:: Smoking status: Patient denies any tobacco usage or history of. Assessment: 11:38 Reassessment: Patient appears in no apparent distress at this time. Patient and/or iw family updated on plan of care and expected duration. Pain level reassessed. Patient is alert, oriented x 3, equal unlabored respirations, skin warm/dry/pink. Vital Signs: 10:28 BP 132 / 72; Pulse 110; Resp 18 S; Temp 100.6; Pulse Ox 100% on R/A; iw 11:10 Temp 101.7(O); iw ED Course: 10:10 Patient arrived in ED. mr 10:12 Matthew Webster PA is PHCP. [facility] 10:12 Timi Johnson MD is Attending Physician. [facility] 10:29 Triage completed. iw 10:30 Arm band placed on. iw 10:34 Patient has correct armband on for positive identification. 5 10:34 COVID swab sent to lab. Flu and/or RSV swab sent to lab. Strep swab sent to lab. [facility] [place] 11:30 Alisha Arellano, RN is Primary Nurse. iw Administered Medications: 10:36 Drug: Tylenol 1000 mg Route: PO; iw 11:30 Follow up: Response: No adverse reaction iw 11:30 Drug: Ibuprofen 400 mg Route: PO; iw 12:00 Follow up: Response: No adverse reaction; Pain is decreased iw 12:40 Drug: Bicillin L-A (penicillin G Benzathine) 1.2 million units Route: IM; Site: left iw gluteus; 12:55 Follow up: Response: No adverse reaction Outcome: 12:35 Discharge ordered by . [facility] 12:53 Patient left the ED. Signatures: Matthew Webster PA PA jmm Rivera, Mary mr Alisha Arellano, RN RN Angely Taylor [facility] [place]
[2021-09-14] MEDS ORDERED: PEN G BENZ LA 1.2MU/2ML SYRINGE IM ONE (12:38)
[2021-09-14 13:06] VITALS: BP 132/72; O2SAT 100
[2021-09-14 13:07] VITALS: TEMP 101.7
== END 2021-09-14 12:53 | disposition home or self-care (01) ==
LOC: ER 10:08
DX: J02.0 Streptococcal pharyngitis (principal); Z20.822 Contact with and (suspected) exposure to COVID-19; E11.9 Type 2 diabetes mellitus without complications
CPT/HCPCS: 87081; 0240U; 96372; 99283; J0561

== ENCOUNTER 2022-04-17 18:21 | Emergency (ER) | payer BC ==
--- OUTSIDE RECORDS SUMMARY | 2022-04-17 18:25 | XMS REPORT | Continuity of Care Document ---
:1985 Author Organization [facility] t Address [address] [place] [address] Care Team Providers Name Role Phone Pcp, Patient Does Not Have A Primary Care Physician [phone] Melanie Christine MD Attending Clinician [phone] Gerardo Thompson Attending Clinician Payers Payer Name Policy Type Policy Number Effective Date Expiration Date Kecia BRIAN O [id number] 2015 00:00:00 Problems Condition Condition Condition Status Onset Resolution Last Treating Co mments Source Name Details Category Date Date Treatment Clinician Date Prediabete Prediabete Disease Active U nivers s s 7-27 ity of 00:00: [address] Cellulitis Cellulitis Disease Active U nivers 7-18 ity of 00:00: [address] Obesity Obesity Disease Active Univers 7-18 ity of 00:00: [place] 00 [facility] Fever Fever Disease Active Univers 7-17 ity of 00:00: [address] Allergies, Adverse Reactions, Alerts Allergy Allergy Status Severity Reaction(s) Onset Inactive Treating Comm ents Source Name Type Date Date Clinician NO KNOWN Drug Active Univers ALLERGIE Class ity of S [facility] Social History Social Habit Start Date Stop Date Quantity Comments Source Exposure to Not sure [facility] SARS-CoV-2 (event) Medica l Branch Alcohol intake 2020-09-252020-09-25 0 /d [facility] 00:00:00 00:00:00 Medical Branch Tobacco use and 2015-12-28 2015-12-28 [facility] used [facility] exposure 00:00:00 00:00:00 Medical Branch Sex Ass[birth year] At [birth year] [facility] 00:00:00 00:00:00 Medical Branch Smoking Status Start Date Stop Date Source Never smoker [facility] Branch Medications Ordered Filled Start Stop Current Ordering Indication Dosage Frequency Signature Comments Components Source Medication Medication Date Date Medication? Clinician (SIG) Name Name cefTRIAXone 2020- No 1000mg 1,000 mg, Univers (ROCEPHIN) 09-26 IV ity of 1,000 mg in 02:30: 14:29 [place], [place] NaCl 0.9% 00 :00 ONCE, 1 Medical (NS) 50 mL dose, Nguyen Bran ch MINI-BAG 09/25/20 at 2130, 50 mL
Reas on for Anti-Infec tive: Documented Infection< br>Documen tre Infection Site: Urine
D uration of Therapy: 7 days NaCl 0.9% 2020- No 1000mL at 999 Uni vers (NS) bolus 09-25- mL/hr, ity of infusion 23:00: 01:27 1,000 mL, [place] as 1,000 mL 00 :00 IV Medical Infusion, Branch ONCE, 1 dose, Nguyen 09/25/20 at 1800, WILD cefdinir 2020- No [id number] 300mg Take 1 Univers 300 mg 09-25 capsule by ity of capsule 00:00: 04:59 mouth 2 [place] 00 :00 (two) Medical times [place] daily for 7 days. sulfamethox Yes 1{tbl} Take 1 Un meme azole-trime 7-07 tablet by ity of thoprim 00:00: mouth [place] 800-160 mg 00 every 12 Medic al per tablet (twelve) Branc h hours. silver Yes Apply to [facility] sulfADIAZIN - area(s) 2 ity of E 1 % cream 00:00: (two) [place] 00 times Medical daily. Branch sulfamethox Yes 1{tbl} Take 1 Un meme azole-trime 7-07 tablet by ity of thoprim 00:00: mouth [place] 800-160 mg 00 every 12 Medic al per tablet (twelve) Branc h hours. silver 2018-0 Yes Apply to Univers sulfADIAZIN 7-07 area(s) 2 ity of E 1 % cream 00:00: (two) [place] 00 times Medical daily. Branch sulfamethox 2018-0 Yes 1{tbl} Take 1 Un meme azole-trime 7-07 tablet by ity of thoprim 00:00: mouth [place] 800-160 mg 00 every 12 Medic al per tablet (twelve) Branc h hours. silver 2018-0 Yes Apply to Univers sulfADIAZIN 7-07 area(s) 2 ity of E [...] ity of mg tablet 00:00: mouth 2 [place] 00 (two) Medical times Branch daily. ciprofloxac 2018-0 Yes 500mg Take 1 Uni vers in HCl 500 1-25 tablet by ity of mg tablet 00:00: mouth 2 00 (two) Medical times Branch daily. phenazopyri 2017-0 Yes 200mg Take 1 Uni vers dine 200 mg 7-30 tablet by ity of tablet 00:00: mouth 3 [place] (three) Medical times Branch daily. phenazopyri 2017-0 Yes 200mg Take 1 Uni vers dine 200 mg 7-30 tablet by ity of tablet 00:00: mouth 3 [place] (three) Medical times Branch daily. phenazopyri 2017-0 Yes 200mg Take 1 Uni vers dine 200 mg 7-30 tablet by ity of tablet 00:00: mouth 3 [place] (three) Medical times Branch daily. Immunizations Ordered Filled Immunization Date Status Comments [facility] e Immunization Name Name HEPLISAV HEP B, 2021-08-13 Completed Universit y of ADULT 2 DOSE, IM 00:00:00 [place] Vt dical Branch Pneumococcal 20 2021-08-13 Completed Universit y of Conjugate, PCV20 00:00:00 [facility] [place] (Prevnar 20) [place] SARS-COV-2 COVID-19 2020-11-09 Completed Unive rsity of MODERNA VACCINE 00:00:00 [facility] Branch SARS-COV-2 COVID-19 2020-11-09 Completed Unive rsity of MODERNA VACCINE 00:00:00 [facility] HEPLISAV HEP B, 2020-01-29 Completed Universit y of ADULT 2 DOSE, IM 00:00:00 [facility] [place] [facility] Influenza Virus 2020-01-29 Completed Universit y of Vaccine 00:00:00 [facility] Pneumococcal 2020-01-29 Completed University o f Polysaccharide, 00:00:00 [facility] PPSV23 (PNEUMOVAX) Branch HEPLISAV HEP B, 2020-01-29 Completed Universit y of ADULT 2 DOSE, IM 00:00:00 [facility] [place] [facility] Influenza Virus 2020-01-29 Completed Universit y of Vaccine 00:00:00 [facility] Pneumococcal 2020-01-29 Completed University o f Polysaccharide, 00:00:00 [facility] PPSV23 (PNEUMOVAX) Branch HEPLISAV HEP B, 2020-01-29 Completed Universit y of ADULT 2 DOSE, IM 00:00:00 [facility] [place] [facility] Influenza Virus 2020-01-29 Completed Universit y of Vaccine 00:00:00 [facility] Pneumococcal 2020-01-29 Completed University o f Polysaccharide, 00:00:00 [facility] PPSV23 (PNEUMOVAX) Branch Influenza Virus 2019-04-05 Completed Universit y of Vaccine Recomb Quad 00:00:[address] [facility] IM, Preserv and ABX Branc h Free 18-64 YRS Influenza Virus 2019-04-05 Completed Universit y of Vaccine Recomb Quad 00:00:[address] [facility] IM, Preserv and ABX Branc h Free 18-64 YRS Influenza Virus 2019-04-05 Completed Universit y of Vaccine Recomb Quad 00:00:[address] [facility] IM, Preserv and ABX Branc h Free 18-64 YRS Influenza Virus 2018-02-24 Completed Universit y of Vaccine Quad IM 3+ 00:00:00 [facility] Influenza Virus 2018-02-24 Completed Universit y of Vaccine Quad IM 3+ 00:00:00 [facility] Influenza Virus 2018-02-24 Completed Universit y of Vaccine Quad IM 3+ 00:00:00 [facility] Influenza Virus 2017-05-26 Completed Universit y of Vaccine Quad IM 3+ 00:00:00 [facility] Influenza Virus 2017-05-26 Completed Universit y of Vaccine 00:00:00 [facility] TDAP 2017-05-26 Completed University of 00:00:00 [facility] Influenza Virus 2017-05-26 Completed Universit y of Vaccine Quad IM 3+ 00:00:00 [facility] Influenza Virus 2017-05-26 Completed Universit y of Vaccine 00:00:00 [facility] TDAP 2017-05-26 Completed University of 00:00:00 [facility] Influenza Virus 2017-05-26 Completed Universit y of Vaccine Quad IM 3+ 00:00:00 [facility] Influenza Virus 2017-05-26 Completed Universit y of Vaccine 00:00:00 [facility] TDAP 2017-05-26 Completed University of 00:00:00 [facility] Influenza Virus 2016-02-25 Completed Universit y of Vaccine Quad IM 3+ 00:00:00 [facility] Influenza Virus 2016-02-25 Completed Universit y of Vaccine Quad IM 3+ 00:00:00 [facility] Influenza Virus 2016-02-25 Completed Universit y of Vaccine Quad IM 3+ 00:00:00 [facility] Vital Signs Vital Name Observation Time Observation Value Comments Source Systolic blood 2020-09-26 01:51:00 138 mm[Hg] Univer sity of pressure [facility] Diastolic blood 2020-09-26 01:51:00 77 mm[Hg] Unive rsity of pressure [facility] Heart rate 2020-09-26 01:51:00 88 /min [facility] Respiratory rate 2020-09-26 01:51:00 17 /min [facility] Oxygen saturation in 2020-09-26 01:51:00 99 /min [facility] Arterial blood by [facility] Pulse oximetry [place] Body temperature 2020-09-25 22:02:00 36.94 [facility] Body weight 2020-09-25 22:02:00 149.687 kg [facility] BMI 2020-09-25 22:02:00 60.36 kg/m2 [facility] Procedures Procedure Date / Time Performed Performing Clinician Sourc e COMP. METABOLIC PANEL 2020-09-26 00:09:00 [id number] CBC WITH DIFF 2020-09-26 00:09:00 Gerardo Evans [facility] URINALYSIS 2020-09-26 00:09:00 Gerardo Evans [facility] COVID-19 (ID NOW RAPID 2020-09-26 00:09:00 [facility] NOTICE OF PRIVACY 2020-09-25 21:56:12 Doctor Un[facility]igned[facility] Name [facility] Encounters Start End Encounter Admission Attending Care Care Encounter Source Date/Time Date/Time Type Type Clinicians Facility Department ID 2021-04-12 Emergency [facility] [id number] [facility] 13:15:36 ity of [facility] 2021-08-14 2021-08-[address] [facility] [id number] [facility] 00:00:00 00:00:00 Melanie JAY [id number] ity of [id number] [id number] [facility] 0[address] [facility] 2020-11-11 2020-11-[address] [facility] [id number] [facility] 00:00:00 00:00:00 Melanie Jay [id number] ity [id number] [phone] [facility] 2020-09-25 2020-09-25 Emergency [facility] [id number] [facility] 17:03:00 20:55:00 Gerardo Jay [id number] it[id number] [id number] Medi jessica 084 Branch Results Test Description Test Time Test Comments Results Result Comments Source Urinalysis 2020-09-26 00:53:58 Test Item Value Reference Range Interpretation Comme nts APPEARANCE (test code = Hazy Clear A 2336295844) COLOR (test code = 9621006561) Yellow Yellow PH (test code = 1496834386) 4.8-8.0 SP GRAVITY (test code = 1.003-1.030 0027191781) GLU U QUAL (test code = Normal Normal 9226442735) BLOOD (test code = 0464557592) Negative Negative KETONES (test code = 7408859087) Negative Negative PROTEIN (test code = 2887-8) Negative Negative UROBILIN (test code = 4.0 mg/dL Normal A 6428414698) BILIRUBIN (test code = Negative Negative 2697142769) NITRITE (test code = 8026402823) Positive Negative A LEUK SADIE (test code = Negative Negative 8359985401) RBC/HPF (test code = 4756981883) See_Comment [Automated message] The system which ge nerated this result transmit tre reference range: 0 - 3 HP F. The reference range was not used to interpret th is result as normal/abnormal . WBC/HPF (test code = 4971526955) See_Comment H [Automated message] The system which ge nerated this result transmit tre reference range: 0 - 5 HP F. The reference range was not used to interpret th is result as normal/abnormal . BACTERIA (test code = Many Negative A 4450402186) MUCOUS (test code = 2801834952) Slight Negative LPF A AMORPHOUS (test code = Rare Rare HPF 1542461436) SQ EPITH (test code = HPF 5550910417) Lab Interpretation (test code = Abnormal 91159-6) [facility]13208[facility]2020-09-26 00:48:58 Test Item Value Reference Range Interpretation Comments NA (test code = 144 mmol/L 135-145 2073847480) K (test code = 3.5 mmol/L 3.5-5.0 4207885900) CL (test code = 107 mmol/L 98-108 0322437281) CO2 TOTAL (test code = 30 mmol/L 23-31 3334052698) AGAP (test code = 2-16 4380617028) BUN (test code = 12 mg/dL 7-23 1519407201) GLUCOSE (test code = 80 mg/dL 70-110 7822705604) CREATININE (test code = 0.69 mg/dL 0.50-1.04 1859972775) TOTAL BILI (test code = 0.5 mg/dL 0.1-1.1 6702633760) CALCIUM (test code = 9.0 mg/dL 8.6-10.6 1298815096) T PROTEIN (test code = 7.5 g/dL 6.3-8.2 2478338552) ALBUMIN (test code = 4.2 g/dL 3.5-5.0 7064863145) ALK PHOS (test code = 80 U/L 34-122 5811535997) ALTv (test code = 42 U/L 5-35 H 2-6) AST(SGOT) (test code = 36 U/L 13-40 3648871473) eGFR (test code = mL/min/1.73m2 7549756385) PADMA (test code = PADMA) Association of [...] tests). Lab Interpretation Abnormal (test code = 95033-4) [facility]ID NOW RAPID TESTING)2020-09-26 00:43:40 Test Item Value Reference Range Interpretation Comments SARS-CoV-2 Rapid ID NOW Not Detected Not Detected (test code = 85820-7) PADMA (test code = PADMA) ID NOW COVID-19 Assay is an isothermal nucleic acid amplification test intended for the qualitative detection of nucleic acid from SARS-CoV-2 viral RNA in nasopharyngeal (FISCAL SERVICES DIRECTOR) specimens. It is used under Emergency Use [...] indicated. Lab Interpretation Normal (test code = 58905-2) [facility] with [id number] 00:38:16 Test Item Value Reference Range Interpretation Comments WBC (test code = See_Comment [Automated 7855-2) message] The sy stem which generated this result transmitted reference range : 4.30 - 11.10 10*3/?L. The reference range was not used to interpret this result as normal/abnormal . RBC (test code = See_Comment [Automated 033-8) message] The sy stem which generated this [...] RDW-SD (test code = 43.3 fL 39.0-49.9 95362-8) RDW-CV (test code = 13.2 % 12.0-15.5 788-0) PLT (test code = See_Comment [Automated 777-3) message] The sy stem which generated this result transmitted reference range : 166 - 358 10*3/ ?L. The reference r gigi was not used to interpret this result as normal/abnormal . MPV (test code = 9.6 fL 9.5-12.9 33788-9) NRBC/100 WBC (test See_Comment [Automat ed code = 6061617648) message] The system which generated this result transmitted reference range : 0.0 - 10.0 /100 WBCs. The refer ence range was not u sed to interpret th is result as normal/abnormal . NRBC x10^3 (test code <0.01 See_Comment [Auto mated = 0298357136) message] The s ystem which generated this result transmitted reference range : 10*3/?L. The reference range was not used to interpret this result as normal/abnormal . GRAN MAT (NEUT) % 51.4 % (test code = 770-8) IMM GRAN % (test code 0.30 % = 3135260820) LYMPH % (test code = 38.9 % 736-9) MONO % (test code = 8.0 % 5905-5) EOS % (test code = 0.9 % 713-8) BASO % (test code = 0.5 % 706-2) GRAN MAT x10^3(ANC) 4.55 10*3/uL 1.88-7.09 (test code = 5361242019) IMM GRAN x10^3 (test 0.03 10*3/uL 0.00-0.06 code = 5770824516) LYMPH x10^3 (test code 3.44 10*3/uL 1.32-3.29 H = 731-0) MONO x10^3 (test code 0.71 10*3/uL 0.33-0.92 = 742-7) EOS x10^3 (test code = 0.08 10*3/uL 0.03-0.39 711-2) BASO x10^3 (test code 0.04 10*3/uL 0.01-0.07 = 704-7) Lab Interpretation Abnormal (test code = 54401-1) [facility]"
--- NOTE | 2022-04-17 19:46 | ER ---
Nurse's Notes [facility] Name: Natalie Estrella Age: 37 yrs Sex: Female : 1985 Arrival Date: 04/17/2022 Time: 18:24 Bed DIS3 Private MD: Diagnosis: Acute upper respiratory infection, unspecified Presentation: 04/17 18:44 Chief complaint: Patient states: PT reports cough, congestion, fever, body aches x3 kb3 days. Coronavirus screen: Vaccine status: Patient reports receiving the 2nd dose of the covid vaccine. Client denies travel out of the [place] in the last 14 days. Ebola Screen: Patient negative for fever greater than or equal to 101.5 degrees Fahrenheit, and additional compatible Ebola Virus Disease symptoms Patient denies exposure to infectious person. Patient denies travel to an Ebola-affected area in the 21 days before illness onset. Initial Sepsis Screen: Does the patient meet any 2 criteria? No. Patient's initial sepsis screen is negative. Does the patient have a suspected source of infection? No. Patient's initial sepsis screen is negative. Risk Assessment: Do you want to hurt yourself or someone else? Patient reports no desire to harm self or others. Onset of symptoms was April 13, 2022. 18:44 Method Of Arrival: Ambulatory kb3 18:44 Acuity: LIO 4 kb3 Triage Assessment: 18:46 General: Appears in no apparent distress. Behavior is calm, cooperative. Pain: kb3 Complains of pain in head, chest, right arm, left arm, right leg and left leg Pain does not radiate. Pain currently is 8 out of 10 on a pain scale. Respiratory: Reports cough that is Onset: The symptoms/episode began/occurred 3-4 days, the patient has moderate shortness of breath. 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 - Social history:: Smoking status: Patient denies any tobacco usage or history of. Screenin:56 Abuse screen: Denies threats or abuse. Denies injuries from another. Nutritional tw5 screening: No deficits noted. Tuberculosis screening: No symptoms or risk factors identified. Fall Risk None identified. Assessment: 19:56 Respiratory: Airway is patent Trachea midline Respiratory effort is even, unlabored. tw5 Vital Signs: 18:44 BP 150 / 85; Pulse 101; Resp 20; Temp 99; Pulse Ox 100% ; Weight 158.76 kg; Height 5 kb3 ft. 2 in. (157.48 cm); Pain 8/10; 18:44 Body Mass Index 64.02 (158.76 kg, 157.48 cm) kb3 ED Course: 18:24 Patient arrived in ED. rg4 18:43 [facility]C [facility] kb 18:43 Terry Mai MD is Attending Physician. kb 18:45 Triage completed. kb3 18:46 Arm band placed on right wrist. kb3 19:56 Garima Johnson is Primary Nurse. tw5 19:56 Patient has correct armband on for positive identification. tw5 19:56 No provider procedures requiring assistance completed. Patient did not have IV access tw5 during this emergency room visit. Administered Medications: No medications were administered Medication: 19:56 VIS not applicable for this client. tw5 Outcome: 19:45 Discharge ordered by MD. kb 19:56 Discharged to home ambulatory. tw5 19:56 Condition: good 19:56 Discharge instructions given to patient, Instructed on discharge instructions, follow up and referral plans. 19:57 Patient left the ED. tw5 Signatures: Cornelia Ross FNP-C PEN MAKER-Tamiko Gamboa rg4 Garima Johnson tw5 Alisson Bravo, RN RN kb3
--- NOTE | 2022-04-17 19:46 | EDPHYS ---
Physician Documentation [facility] Name: Natalie Estrella Age: 37 yrs Sex: Female : 1985 Arrival Date: 04/17/2022 Time: 18:24 Bed DIS3 Private MD: ED Physician Terry Mai HPI: 04/17 19:44 This 37 yrs old Female presents to ER via Ambulatory with complaints of kb Breathing Difficulty, Cough. 19:44 The patient or guardian reports cough, that is intermittent, described as mild, flu kb symptoms, low-grade fever, myalgias. Onset: The symptoms/episode began/occurred 3 day(s) ago. Severity of symptoms: At their worst the symptoms were mild, in the emergency department the symptoms are unchanged. Modifying factors: The symptoms are alleviated by nothing, the symptoms are aggravated by nothing. Associated signs and symptoms: Pertinent positives: fever, rhinorrhea, Pertinent negatives: chest pain, diarrhea, ear ache, nausea, vomiting. The patient has not experienced similar symptoms in the past. The patient has not recently seen a physician. 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 - Social history:: Smoking status: Patient denies any tobacco usage or history of. ROS: 19:43 Cardiovascular: Negative for chest pain, palpitations, and edema. kb 19:43 Constitutional: Positive for body aches, chills, fever, malaise. kb 19:43 ENT: Positive for rhinorrhea, sinus congestion. 19:43 Respiratory: Positive for cough, Negative for dyspnea on exertion, hemoptysis, orthopnea, pleurisy, shortness of breath, sputum production, wheezing. 19:43 All other systems are negative. Exam: 19:43 Constitutional: This is a well developed, well nourished patient who is awake, alert, kb and in no acute distress. Head/Face: Normocephalic, atraumatic. ENT: Moist Mucous membranes Cardiovascular: Regular rate and rhythm with a normal S1 and S2. No gallops, murmurs, or rubs. No pulse deficits. Respiratory: Respirations even and unlabored. No increased work of breathing. Talking in full sentences Abdomen/GI: Soft, non-tender. No distention Skin: Warm, dry with normal turgor. Normal color. MS/ Extremity: Pulses equal, no cyanosis. Neurovascular intact. Full, normal range of motion. Neuro: Awake and alert, GCS 15, oriented to person, place, time, and situation. Moves all extremities. Normal gait. Psych: Awake, alert, with orientation to person, place and time. Behavior, mood, and affect are within normal limits. Vital Signs: 18:44 BP 150 / 85; Pulse 101; Resp 20; Temp 99; Pulse Ox 100% ; Weight 158.76 kg; Height 5 kb3 ft. 2 in. (157.48 cm); Pain 8/10; 18:44 Body Mass Index 64.02 (158.76 kg, 157.48 cm) kb3 MDM: 18:49 Patient medically screened. kb 19:43 Data reviewed: vital signs, nurses notes. Data interpreted: Pulse oximetry: on room air kb is 100 %. Interpretation: normal. Counseling: I had a detailed discussion with the patient and/or guardian regarding: the historical points, exam findings, and any diagnostic results supporting the discharge/admit diagnosis, lab results, the need for outpatient follow up, a family practitioner, to return to the emergency department if symptoms worsen or persist or if there are any questions or concerns that arise at home. 04/17 18:50 Order name: Flu; Complete Time: 19:43 kb 04/17 18:50 Order name: RSV; Complete Time: 19:43 kb 04/17 18:50 Order name: COVID-19 SARS RT PCR (Document "Date of Onset" if Symptomatic); Complete kb Time: 19:43 Administered Medications: No medications were administered Disposition: 04/18 06:00 Co-signature as Attending Physician, Terry Mai MD I agree with the assessment and kdr plan of care. Disposition Summary: 04/17/22 19:45 Discharge Ordered Location: Home kb Condition: Stable kb Diagnosis - Acute upper respiratory infection, unspecified kb Followup: kb - With: Emergency Department - When: As needed - Reason: Worsening of condition Followup: kb - With: Private Physician - When: 2 - 3 days - Reason: Recheck today's complaints, Continuance of care, Re-evaluation by your physician Discharge Instructions: - Discharge Summary Sheet kb - Upper Respiratory Infection, Adult, [id number] kb - Viral Respiratory Infection, [id number] kb Forms: - Medication Reconciliation Form kb - Thank You Letter kb - Antibiotic Education kb - Prescription Opioid Use kb Signatures: Dispatcher [employer] EDMS Cornelia Ross, GRID OPERATOR-C GRID OPERATOR-Terry Hoang MD MD kdr Bradberry, Kelly, RN RN kb3
[2022-04-17 20:55] VITALS: BP 150/85; TEMP 99; O2SAT 100
== END 2022-04-17 19:57 | disposition home or self-care (01) ==
LOC: ER 18:21
DX: J06.9 Acute upper respiratory infection, unspecified (principal); Z20.822 Contact with and (suspected) exposure to COVID-19; E11.9 Type 2 diabetes mellitus without complications
CPT/HCPCS: 87807; 87804 ×2; 99281; U0003

== ENCOUNTER 2024-04-07 18:46 | Emergency (ER) | payer BC ==
[2024-04-07] MEDS ORDERED: NA CHLORIDE 0.9% 1,000 ML ONE (19:54)
[2024-04-07 20:02] LABS: Absolute Basophils 0.1 K/uL (0-0.5); Absolute Eosinophils 0.1 K/uL (0-0.5); Absolute Lymphocytes (CBC) 3.4 K/uL (0.7-4.9); Absolute Monocytes 0.6 K/uL (0.1-1.3); Absolute Neutrophil 3.9 K/uL (1.8-8.0); Basophils % 1.1 % (0-1.3); Eosinophils % 1.2 % (0-4.4); Hematocrit 42.6 % (36.0-45.0); Hemoglobin 14.1 g/dL (12.0-15.0); Lymphocytes % 42.1 % (15.3-44.8); MCH 27.9 pg (27.0-35.0); MCHC 33.2 g/dL (32.0-36.0); MCV 84.2 fL (80-100); MPV 8.7 fL (7.6-11.3); Monocytes % 7.8 % (3.3-12.3); Neutrophils % 47.8 % (41.7-73.7); Platelets 241 thou/uL (152-406); RBC Red Blood Cell Count 5.06 M/uL (3.86-4.86); Red Cell Distribution Width 13.9 % (12.1-15.2)
[2024-04-07 20:08] LABS: Specific Gravity > 1.030 (1.005-1.030); Sqamous Epithelial <5 /HPF (None Seen); Urine Bacteria <20 /HPF (<20); Urine Bilirubin NEGATIVE (Negative); Urine Blood Negative (Negative); Urine Clarity Clear (Clear); Urine Color Colorless (Yellow); Urine Culture Reflex Order NOT NEEDED; Urine Glucose 4+ (Over) (Negative); Urine Ketones NEGATIVE (Negative); Urine Micro Reflex YN NO BILL MICROSCOPIC; Urine Nitrite NEGATIVE (Negative); Urine Protein NEGATIVE (Negative); Urine RBC <5 /HPF (None Seen); Urine Urobilinogen Normal (Normal); Urine WBC <5 /HPF (<5)
[2024-04-07 20:20] LABS: Albumin 3.1 g/dL (3.4-5.0); Albumin/Globulin Ratio 0.7 (1.1-1.8); Anion Gap 9.8 mEq/L (5.0-15.0); Bilirubin Total 0.3 mg/dL (0.2-1.0); Globulin 4.5 g/dL (2.3-3.5); Potassium 3.8 mEq/L (3.5-5.1); Protein, Total 7.6 g/dL (6.4-8.2)
--- NOTE | 2024-04-07 21:07 | ER ---
Nurse's Notes [facility] Name: Natalie Estrella Age: 39 yrs Sex: Female : 1985 Arrival Date: 04/07/2024 Time: 18:46 Bed 8 Private MD: Diagnosis: Hyperglycemia, unspecified Presentation: 04/07 19:30 Chief complaint: Patient states: I have DM and my vision started getting blurry with bm8 some mild dizziness around 1730. Coronavirus screen: Vaccine status: Patient reports receiving the 2nd dose of the covid vaccine. Ebola Screen: Patient negative for fever greater than or equal to 101.5 degrees Fahrenheit, and additional compatible Ebola Virus Disease symptoms Patient denies exposure to infectious person. Patient denies travel to an Ebola-affected area in the 21 days before illness onset. No symptoms or risks identified at this time. Initial Sepsis Screen: Does the patient meet any 2 criteria? No. Patient's initial sepsis screen is negative. Does the patient have a suspected source of infection? No. Patient's initial sepsis screen is negative. Risk Assessment: Do you want to hurt yourself or someone else? Patient reports no desire to harm self or others. Onset of symptoms was April 07, 2024 at 17:30. 19:30 Method Of Arrival: Ambulatory bm8 19:30 Acuity: LIO 3 bm8 Triage Assessment: 19:31 General: Appears in no apparent distress. comfortable, Behavior is calm, cooperative, bm8 appropriate for age. Pain: Denies pain. EENT: No deficits noted. No signs and/or symptoms were reported regarding the EENT system. Neuro: Level of Consciousness is awake, alert, obeys commands, Oriented to person, place, time, situation, Appropriate for age Reports blurred vision dizziness. Cardiovascular: No deficits noted. Heart tones S1 S2 present Capillary refill < 3 seconds in bilateral fingers Patient's skin is warm and dry. Respiratory: No deficits noted. Breath sounds are clear bilaterally. GI: pt reports elevated blood sugar. : No deficits noted. No signs and/or symptoms were reported regarding the genitourinary system. Derm: No deficits noted. No signs and/or symptoms reported regarding the dermatologic system. Musculoskeletal: No deficits noted. No signs and/or symptoms reported regarding the musculoskeletal system. 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 - Infectious Disease History:: Denies. - Social history:: Smoking status: Patient denies any tobacco usage or history of. Screenin:34 [facility] ED Fall Risk Assessment (Adult) History of falling in the last 3 months, bm8 including since admission No falls in past 3 months (0 pts) Confusion or Disorientation No (0 pts) Intoxicated or Sedated No (0 pts) Impaired Gait No (0 pts) Mobility Assist Device Used No (0 pt) Altered Elimination No (0 pt) Score/Fall Risk Level 0 - 2 = Low Risk Oriented to surroundings, Maintained a safe environment, Educated pt \T\ family on fall prevention, incl call for assistance when getting out of bed, Assessed \T\ reinforced patient's understanding of fall precautions, Hourly rounding (assess needs \T\ fall precautionary measures) done, Used ambulatory aids as needed (educated on \T\ assisted with), Used gait belt as appropriate. Abuse screen: Denies threats or abuse. Nutritional screening: No deficits noted. Tuberculosis screening: No symptoms or risk factors identified. Assessment: 19:34 Reassessment: see triage assessment. bm8 21:00 Reassessment: Patient appears in no apparent distress at this time. Patient and/or bm8 family updated on plan of care and expected duration. Pain level reassessed. Patient is alert, oriented x 3, equal unlabored respirations, skin warm/dry/pink. fsbs 290 Patient states feeling better. Patient states symptoms have improved. General: Appears in no apparent distress. comfortable, Behavior is calm, cooperative, appropriate for age. Pain: Denies pain. Neuro: No deficits noted. Level of Consciousness is awake, alert, obeys commands, Oriented to person, place, time, situation, Appropriate for age. Cardiovascular: No deficits noted. Denies chest pain, Capillary refill < 3 seconds in bilateral fingers Patient's skin is warm and dry. Respiratory: Airway is patent Respiratory effort is even, unlabored, Respiratory pattern is regular, symmetrical. Vital Signs: 19:30 BP 131 / 83; Pulse 84; Resp 17; Temp 97.2; Pulse Ox 97% ; Weight 162.84 kg; Height 5 bm8 ft. 2 in. ; Pain 0/10; 21:00 BP 113 / 64; Pulse 80; Resp 17; Temp 97.2; Pulse Ox 100% ; Pain 0/10; bm8 19:30 Body Mass Index 65.66 (162.84 kg, 157.48 cm) bm8 19:30 Pain Scale: Adult bm8 21:00 Pain Scale: Adult bm8 [place] Coma Score: 19:34 Eye Response: spontaneous(4). Motor Response: obeys commands(6). Verbal Response: bm8 oriented(5). Total: 15. 21:00 Eye Response: spontaneous(4). Motor Response: obeys commands(6). Verbal Response: bm8 oriented(5). Total: 15. ED Course: 18:50 Patient arrived in ED. sj2 18:56 Callum Brandon FNP-C is [facility]. dr5 18:56 Vu Parks MD is Attending Physician. dr5 19:30 Juan Miguel Singletary, RN is Primary Nurse. bm8 19:31 Triage completed. bm8 19:31 Arm band placed on right wrist. bm8 19:34 Patient has correct armband on for positive identification. Bed in low position. Call bm8 light in reach. Side rails up X 1. Client placed on continuous cardiac and pulse oximetry monitoring. NIBP monitoring applied. Pulse ox on. NIBP on. Door closed. Noise minimized. Pillow given. Verbal reassurance given. Head of bed elevated. 19:34 No provider procedures requiring assistance completed. Initial lab(s) drawn, by me bmSharon sent to lab. Urine collected: clean catch specimen, clear. Inserted saline lock: 20 gauge in right antecubital area, using aseptic technique. Blood collected. Flushed with 10 mL NS. Patient maintains SpO2 saturation greater than 95% on room air. 21:23 Provided Education on: post er care. bm8 21:23 IV discontinued, intact, bleeding controlled, No redness/swelling at site. Pressure bm8 dressing applied. Administered Medications: 19:56 Drug: NS 0.9% IV 1000 ml IV at 1000 ml once; to be given as a bolus over 60 minutes bm8 Route: IV; Rate: 1000 ml; Site: right antecubital; 21:00 Follow up: Response: No adverse reaction; IV Status: Completed infusion; IV Intake: bm8 1000ml Medication: 19:34 VIS not applicable for this client. bm8 Intake: 21:00 IV: 1000ml; Total: 1000ml. bm8 Outcome: 21:06 Discharge ordered by . nikole 21:23 Discharged to home ambulatory, bm8 21:23 Condition: stable 21:23 Discharge instructions given to patient, Instructed on discharge instructions, follow up and referral plans. Demonstrated understanding of instructions, follow-up care, 21:24 Patient left the ED. bm8 Signatures: Juan Miguel Singletary RN RN bm8 Jacquie Orourke2 Callum Brandon, BINDERY HELPER-C BINDERY HELPER-Cdr5
--- NOTE | 2024-04-07 21:07 | EDPHYS ---
Physician Documentation [facility] Name: Natalie Estrella Age: 39 yrs Sex: Female : 1985 Arrival Date: 04/07/2024 Time: 18:46 Bed 8 Private MD: ED Physician Vu Parks HPI: 04/07 21:08 This 39 yrs old Female presents to ER via Ambulatory with complaints of High dr5 Blood Sugar. 21:08 Pt is a 39 year old female presenting with blurry vision and mild headache. Pt has hx dr5 of DM T2. APPLICATION SUPPORT INTERN: 19:31 LMP N/A - Hysterectomy, Not bm8 Historical: - Allergies: 19:31 No Known Allergies; bm8 - Home Meds: 19:31 glipizide 5 mg oral tablet 1 tab 2 times per day [Active]; bm8 - PMHx: 19:31 diabetes mellitus; bm8 - PSHx: 19:31 section; hysterectomy; bm8 - Immunization history:: Adult Immunizations up to date. - Infectious Disease History:: Denies. - Social history:: Smoking status: Patient denies any tobacco usage or history of. ROS: 21:08 Constitutional: as per hpi dr5 Exam: 21:08 Constitutional: This is a well developed, well nourished patient who is awake, alert, dr5 and in no acute distress. Head/Face: Normocephalic, atraumatic. Eyes: Pupils equal round and reactive to light, extra-ocular motions intact. Lids and lashes normal. Conjunctiva and sclera are non-icteric and not injected. Cornea within normal limits. Periorbital areas with no swelling, redness, or edema. ENT: Nares patent. No nasal discharge, no septal abnormalities noted. Tympanic membranes are normal and external auditory canals are clear. Oropharynx with no redness, swelling, or masses, exudates, or evidence of obstruction, uvula midline. Mucous membranes moist. Neck: Trachea midline, no thyromegaly or masses palpated, and no cervical lymphadenopathy. Supple, full range of motion without nuchal rigidity, or vertebral point tenderness. No Meningismus. Chest/axilla: Normal chest wall appearance and motion. Nontender with no deformity. No lesions are appreciated. Respiratory: Lungs have equal breath sounds bilaterally, clear to auscultation. No rales, rhonchi or wheezes noted. No increased work of breathing, no retractions or nasal flaring. 21:08 Abdomen/GI: Inspection: obese Vital Signs: 19:30 BP 131 / 83; Pulse 84; Resp 17; Temp 97.2; Pulse Ox 97% ; Weight 162.84 kg; Height 5 bm8 ft. 2 in. ; Pain 0/10; 21:00 BP 113 / 64; Pulse 80; Resp 17; Temp 97.2; Pulse Ox 100% ; Pain 0/10; bm8 19:30 Body Mass Index 65.66 (162.84 kg, 157.48 cm) bm8 19:30 Pain Scale: Adult bm8 21:00 Pain Scale: Adult bm8 [place] Coma Score: 19:34 Eye Response: spontaneous(4). Motor Response: obeys commands(6). Verbal Response: bm8 oriented(5). Total: 15. 21:00 Eye Response: spontaneous(4). Motor Response: obeys commands(6). Verbal Response: bm8 oriented(5). Total: 15. MDM: 18:56 Medical Screening Exam initiated dr5 21:08 Differential diagnosis: diabetes insipidus, DKA, hyperglycemia. dr5 21:10 Data reviewed: vital signs, nurses notes. Consideration of Admission/Observation dr5 Escalation of care including admission/observation considered. Considered admission for possible DKA. Care significantly affected by the following chronic conditions: Diabetes. Care significantly affected by the following Social Determinants of Health: Poor access to healthcare and/or lack of insurance, Poor access to transportation. Counseling: I had a detailed discussion with the patient and/or guardian regarding the historical points, exam findings, and any diagnostic results supporting the discharge/admit diagnosis, lab results, the need for outpatient follow up, for definitive care, a family practitioner, to return to the emergency department if symptoms worsen or persist or if there are any questions or concerns that arise at home. Response to treatment: the patient's symptoms have resolved after treatment. ED course: Pt was not found to be in DKA. Gap normal. Labs normal. NS 1 liter given with resolution of symptoms. Will have patient follow up with PCP as needed.. 04/07 19:38 Order name: Glucose, Ancillary Testing; Complete Time: 19:50 EDMS 04/07 19:43 Order name: CMP; Complete Time: 20:20 dr5 10/26 19:43 Order name: CBC with Manual Differential; Complete Time: 22:34 dr5 04/07 19:43 Order name: Urinalysis W/Microscopic; Complete Time: 20:20 dr5 04/07 21:12 Order name: Glucose, Ancillary Testing; Complete Time: 21:12 EDMS Administered Medications: 19:56 Drug: NS 0.9% IV 1000 ml IV at 1000 ml once; to be given as a bolus over 60 minutes bm8 Route: IV; Rate: 1000 ml; Site: right antecubital; 21:00 Follow up: Response: No adverse reaction; IV Status: Completed infusion; IV Intake: bm8 1000ml Disposition Summary: 04/07/24 21:06 Discharge Ordered Notes: Location: Home dr5 Condition: Stable dr5 Diagnosis - Hyperglycemia, unspecified dr5 Followup: dr5 - With: Emergency Department - When: As needed - Reason: Worsening of condition Followup: dr5 - With: Private Physician - When: 1 - 2 days - Reason: Recheck today's complaints, Continuance of care, Re-evaluation by your physician Discharge Instructions: - Discharge Summary Sheet dr5 - Hyperglycemia dr5 Forms: - Medication Reconciliation Form dr5 - Patient Portal Instructions dr5 - Leadership Thank You Letter dr5 Signatures: Dispatcher [employer] EDMS Juan Miguel Singletary RN RN bm8 Callum Brandon, RETAIL HELPER-C RETAIL HELPER-Cdr5 Corrections: (The following items were deleted from the chart) 19:44 19:44 COMPREHENSIVE METABOLIC PANEL+C.LAB.BRZ ordered. EDMS EDMS 19:44 19:44 CBC with Manual Differential+H.LAB.BRZ ordered. EDMS EDMS
[2024-04-07 21:20] LABS: Band Neutrophils 2 % (0-1); Differential Total Cells Count 100; Lymphocytes 54 % (15-42); Monocytes 4 % (0-10); Segmented Neutrophils 40 % (40-80)
[2024-04-07 21:21] LABS: Blood Morphology Comment NOT SEEN (NOT SEEN); Platelet Estimate ADEQ
[2024-04-08 09:29] VITALS: TEMP 97.2
[2024-04-08 09:30] VITALS: BP 113/64; O2SAT 100
== END 2024-04-07 21:24 | disposition home or self-care (01) ==
LOC: ER 18:46
DX: E11.65 Type 2 diabetes mellitus with hyperglycemia (principal)
CPT/HCPCS: 85025; 81001; 36415; 82947 ×2; 80053; 96360; 99284; J7030

== ENCOUNTER 2024-10-11 12:06 | Emergency (ER) | payer BC ==
--- OUTSIDE RECORDS SUMMARY | 2024-10-11 12:11 | XMS REPORT | Continuity of Care Document ---
Author Name Unknown Address [address] [place] [address] [facility] Address [address] [place] [address] Care Team Providers Care Sponge Hooker Name Role Phone Blanks Raven MOORE Primary Care Physician + JORDAN POWERS Attending Clinician Unavailable JORDAN POWERS Attending Clinician Unavailable Jordan Powers MD Attending Clinician +-[phone] JONY VERA Attending Clinician Unavailable JONY VERA Attending Clinician Unavailable Jony Vera DO Attending Clinician [phone] SAILAJA SLAUGHTER Attending Clinician Unavailable SAILAJA SLAUGHTER Attending Clinician Unavailable Sailaja Slaughter DO Attending Clinician +-[phone] FRANCISCA STAFFROD Attending Clinician Unav FRANCISCA Batista Attending Clinician Unav Francisca Batista MD Attending Clinician + VIRIDIANA DIALLO Attending Clinician Unavailable VIRIDIANA DIALLO Attending Clinician Unavailable Donovan Ayala NP Attending Clinician [phone] SEBAS HOLLIS Attending Clinician Unavailable SEBAS HOLLIS Attending Clinician Unavailable ASAF GROVES Attending Clinician UnavailAsaf Glass Attending Clinician +- [phone] Melanie Christine MD Attending Clinician + -[phone] Valeriano Thompsonjoselinjeremiah Diehl Attending Clinician JONY VERA Admitting Clinician Unavailable FRANCISCA STAFFORD Admitting Clinician Unav ailable DONOVAN AYALA Admitting Clinician Unavailab SEBAS Brand Admitting Clinician Unavailable Payers Payer Name Policy Type Policy Number Effective Date Expirati on Date Source [facility] [id number] 2015 00:00:00 [employer] [id number] 2021 00:00:00 Problems Condition Name Condition Details Condition Category Status Onset Date Resolution Date Last Treatment Date Treating Clinician Comments Source Acute cough Acute cough Disease Active 8- 00:00: 00 [facility] Palpitatio n Palpitatio n Disease Active 8 00:00: 00 [facility] Viral syndrome Viral syndrome Disease Active 8 00:00: 00 [facility] Acute cough Acute cough Disease Active 8 00:00: 00 [facility] Prediabete s Prediabete s Disease Active 01-06 00:00: 00 [facility] Cellulitis Cellulitis Disease Active 12-28 00:00: 00 [facility] Obesity Obesity Disease Active 12-28 00:00: 00 [facility] Fever Fever Disease Active 12-27 00:00: 00 [facility] Allergies, Adverse Reactions, Alerts Allergy Name Allergy Type Status Severity Reaction(s) Onset Date Inactive Date Treating Clinician Comments Source NO KNOWN ALLERGIE S Drug Class Active [facility] Social History Social Habit Start Date Stop Date Quantity Comments Source [facility] Exposure to SARS-CoV-2 (event) Not sure [facility] ASSERTION Not [facility] History of Social function 2024-06-15 00:00:00 2024-06-15 00:00:00 [facility] Alcoholic beverage intake 2024-06-15 00:00:00 2024-06-15 00:00:00 0 /d [facility] Alcohol intake 2023-02-16 00:00:00 2023-02-16 00:00:00 0 /d [facility] Tobacco use and exposure 2015-12-28 00:00:00 2015-12-28 00:00:00 Smokeless tobacco non-user [facility] Sex assigned at 1985 00:00:00 1985 00:00:00 [facility] Smoking Status Start Date Stop Date Source Never smoked tobacco [facility] Medications Ordered Medication Name Filled Medication Name Start Date Stop Date Current Medication? Ordering Clinician Indication Dosage Frequency Signature (SIG) Comments Components Source iopamidol (ISOVUE 370-500 mL) injection 84 mL 10-10 16:30: 00 10-10 16:30 :00 No [id number] 84mL 84 mL, Intravenou s, ONCE, 1 dose, On Tue10/10/24 at 1130, Routine [facility] docusate sodium 250 mg capsule 10-10 00:00: 00 Yes [id number] 250mg Take 1 capsule by mouth in the morning. [facility] ondansetron 4 mg disintegrat ing tablet 10-10 00:00: 00 Yes [id number] 4mg Take 1 tablet by mouth every 4 (four) hours as needed for Nausea and Vomiting (N/V). [facility] magnesium citrate solution 10-10 00:00: 00 10-11 04:59 :00 Yes [id number] 300mL Take 300 mL by mouth once now for 1 dose. [facility] benzocaine- menthoL (CEPACOL SORE THROAT, CRYSTAL-MEN,) lozenge 2023-06 00:00: 00 Yes [id number] 1{lozen ge} Take 1 Lozenge by mouth every 4 (four) hours as needed for Sore throat. [facility] insulin regular human (HUMULIN R) injection 6 Units 2023-06 05:00: 00 04-16 04:23 :00 No 6U 6 Units, Slow IV Push, ONCE, 1 dose, On 04/15/24 at 2300, Routine, Indication for insulin: Hyperglyce silvana [facility] NaCl 0.9% (NS) bolus infusion 500 mL 2023-06 04:15: 00 04-16 04:49 :00 No 500mL at 999 mL/hr, 500 mL, IV Infusion, ONCE, 1 dose, On Tue04/15/24 at 2215, STAT [facility] acetaminoph en (TYLENOL) tablet 1,000 mg 2023-06 03:15: 00 04-16 02:39 :00 No 1000mg 1,000 mg, Oral, ONCE NOW, 1 dose, On Tue04/15/24 at 2115, Routine [facility] NaCl 0.9% (NS) bolus infusion 500 mL 2023-06 03:00: 00 04-16 03:31 :00 No 500mL at 999 mL/hr, 500 mL, IV Infusion, ONCE, 1 dose, On Tue04/15/24 at 2100, STAT [facility] diphenhydrA MINE (BENADRYL) injection 25 mg 2023-06 02:30: 00 04-16 02:40 :00 No 25mg 25 mg, Slow IV Push, ONCE, 1 dose, On Tue04/15/24 at 2030, STAT [facility] metoclopram elmer HCl (REGLAN) injection 10 mg 2023-06 02:30: 00 04-16 02:40 :00 No 10mg 10 mg, Slow IV Push, ONCE, 1 dose, On 04/15/24 at 2030, WILD [facility] benzonatate 200 mg capsule 01-14 00:00: 00 Yes [id number] 200mg Take 1 capsule by mouth 3 (three) times daily as needed for Cough. [facility] ibuprofen 800 mg tablet 01-14 00:00: 00 Yes [id number] 800mg Take 1 tablet by mouth every 8 (eight) hours as needed for Pain (scale 4-6) or Temp > 38.5 C. [facility] NaCl 0.9% (NS) IV infusion 1,000 mL 12-23 02:00: 00 Yes 1000mL at 999 mL/hr, Intravenou s, CONTINUOUS , Starting on Tue12/23/23 at 2100, Until Discontinu ed, Routine [facility] insulin regular human (HUMULIN R) injection 6 Units 12-23 01:45: 00 12-23 01:14 :00 No 6U 6 Units, Subcutaneo us, ONCE, 1 dose, On Tue12/23/23 at 2045, Routine, Indication for insulin: Hyperglyce silvana [facility] dexamethaso ne sod phos PF injection 10 mg 2022-06 19:30: 00 06-01 19:29 :00 No 10mg 10 mg, Intramuscu lar, ONCE, 1 dose, On Tue06/01/23 at 1330, 1 mL [facility] ketorolac (TORADOL) injection 15 mg 2022-06 19:15: 00 06-01 19:30 :00 No 15mg 15 mg, Intramuscu lar, ONCE, 1 dose, On Tue06/01/23 at 1330, Routine [facility] predniSONE 20 mg tablet 2022-06 00:00: 00 06-06 05:59 :00 No [id number] 40mg Take 2 tablets by mouth in the morning for 4 days. [facility] azithromyci n (ZITHROMAX Z-REBECCA) 250 mg tablet 2022-06 00:00: 00 06-05 05:59 :00 No [id number] 500mg Take 2 tablets by mouth in the morning for 3 days. [facility] ketorolac (TORADOL) injection 15 mg 02-17 02:30: 00 02-17 02:19 :00 No 15mg 15 mg, Slow IV Push, ONCE, 1 dose, On Tue02/16/23 at 2130, WILD [facility] NaCl 0.9% (NS) bolus infusion 500 mL 02-17 02:30: 00 02-17 02:47 :00 No 500mL at 999 mL/hr, 500 mL, IV Infusion, ONCE, 1 dose, On Tue02/16/23 at 2130, [facility] metoclopram elmer HCl (REGLAN) injection 10 mg 02-17 01:45: 00 02-17 02:19 :00 No 10mg 10 mg, Slow IV Push, ONCE, 1 dose, On Tue02/16/23 at 2045, [facility] cefTRIAXone (ROCEPHIN) 1,000 mg in NaCl 0.9% (NS) 50 mL MINI-BAG 09-26 02:30: 00 09-26 14:29 :00 No 1000mg 1,000 mg, IV Piggyback, ONCE, 1 dose, Nguyen 09/25/20 at 2130, 50 mL
Reas on for Anti-Infec tive: Documented Infection< br>Documen tre Infection Site: Urine
D uration of Therapy: 7 days [facility] NaCl 0.9% (NS) bolus infusion 1,000 mL 09-25 23:00: 00 09-26 01:27 :00 No 1000mL at 999 mL/hr, 1,000 mL, IV Infusion, ONCE, 1 dose, Nguyen 09/25/20 at 1800, [facility] cefdinir 300 mg capsule 09-25 00:00: 00 10-03 04:59 :00 No [id number] 300mg Take 1 capsule by mouth 2 (two) times daily for 7 days. [facility] sulfamethox azole-trime thoprim 800-160 mg per tablet 12-17 00:00: 00 Yes 1{tbl} Take 1 tablet by mouth every 12 (twelve) hours. [facility] silver sulfADIAZIN E 1 % cream 12-17 00:00: 00 Yes Apply to area(s) 2 (two) times daily. [facility] ciprofloxac in HCl 500 mg tablet 07-07 00:00: 00 Yes 500mg Take 1 tablet by mouth 2 (two) times daily. [facility] phenazopyri dine 200 mg tablet 01-09 00:00: 00 Yes 200mg Take 1 tablet by mouth 3 (three) times daily. [facility] Immunizations Ordered Immunization Name Filled Immunization Name Date Status Comments Source HEPLISAV HEP B, ADULT 2 DOSE, IM 2021-08-13 00:00:00 Completed [facility] Pneumococcal 20 Conjugate, PCV20 (Prevnar 20) 2021-08-13 00:00:00 Completed [facility] HEPLISAV HEP B, ADULT 2 DOSE, IM 2021-08-13 00:00:00 Completed [facility] Pneumococcal 20 Conjugate, PCV20 (Prevnar 20) 2021-08-13 00:00:00 Completed [facility] HEPLISAV HEP B, ADULT 2 DOSE, IM 2021-08-13 00:00:00 Completed [facility] Pneumococcal 20 Conjugate, PCV20 (Prevnar 20) 2021-08-13 00:00:00 Completed [facility] SARS-COV-2 COVID-19 MODERNA VACCINE 2020-11-09 00:00:00 Completed [facility] SARS-COV-2 COVID-19 MODERNA 12+ YRS VACCINE 2020-11-09 00:00:00 Completed [facility] SARS-COV-2 COVID-19 MODERNA 12+ YRS VACCINE 2020-11-09 00:00:00 Completed [facility] SARS-COV-2 COVID-19 MODERNA VACCINE 2020-11-09 00:00:00 Completed [facility] HEPLISAV HEP B, ADULT 2 DOSE, IM 2020-01-29 00:00:00 Completed [facility] Influenza Virus Vaccine 2020-01-29 00:00:00 Completed [facility] Pneumococcal Polysaccharide, PPSV23 (PNEUMOVAX) 2020-01-29 00:00:00 Completed [facility] HEPLISAV HEP B, ADULT 2 DOSE, IM 2020-01-29 00:00:00 Completed [facility] Influenza Virus Vaccine 2020-01-29 00:00:00 Completed [facility] Pneumococcal Polysaccharide, PPSV23 (PNEUMOVAX) 2020-01-29 00:00:00 Completed [facility] HEPLISAV HEP B, ADULT 2 DOSE, IM 2020-01-29 00:00:00 Completed Influenza Virus Vaccine 2020-01-29 00:00:00 Completed Pneumococcal Polysaccharide, PPSV23 (PNEUMOVAX) 2020-01-29 00:00:00 Completed HEPLISAV HEP B, ADULT 2 DOSE, IM 2020-01-29 00:00:00 Completed [facility] Influenza Virus Vaccine 2020-01-29 00:00:00 Completed [facility] Pneumococcal Polysaccharide, PPSV23 (PNEUMOVAX) 2020-01-29 00:00:00 Completed [facility] HEPLISAV HEP B, ADULT 2 DOSE, IM 2020-01-29 00:00:00 Completed [facility] Influenza Virus Vaccine 2020-01-29 00:00:00 Completed [facility] Pneumococcal Polysaccharide, PPSV23 (PNEUMOVAX) 2020-01-29 00:00:00 Completed [facility] Influenza Virus Vaccine Recomb Quad IM, Preserv and ABX Free 18-64 YRS 2019-04-05 00:00:00 Completed [facility] Influenza Virus Vaccine Recomb Quad IM, Preserv and ABX Free 18-64 YRS 2019-04-05 00:00:00 Completed [facility] Influenza Virus Vaccine Recomb Quad IM, Preserv and ABX Free 18-64 YRS 2019-04-05 00:00:00 Completed Influenza Virus Vaccine Recomb Quad IM, Preserv and ABX Free 18-64 YRS 2019-04-05 00:00:00 Completed [facility] Influenza Virus Vaccine Recomb Quad IM, Preserv and ABX Free 18-64 YRS 2019-04-05 00:00:00 Completed [facility] Influenza Virus Vaccine Quad IM 3+ YRS 2018-02-24 00:00:00 Completed [facility] Influenza Virus Vaccine Quad IM 3+ YRS 2018-02-24 00:00:00 Completed [facility] Influenza Virus Vaccine Quad IM 3+ YRS 2018-02-24 00:00:00 Completed Influenza Virus Vaccine Quad IM 3+ YRS 2018-02-24 00:00:00 Completed [facility] Influenza Virus Vaccine Quad IM 3+ YRS 2018-02-24 00:00:00 Completed [facility] Influenza Virus Vaccine 2017-05-26 00:00:00 Completed [facility] TDAP 2017-05-26 00:00:00 Completed [facility] Influenza Virus Vaccine Quad IM 3+ YRS 2017-05-26 00:00:00 Completed [facility] Influenza Virus Vaccine 2017-05-26 00:00:00 Completed [facility] TDAP 2017-05-26 00:00:00 Completed [facility] Influenza Virus Vaccine Quad IM 3+ YRS 2017-05-26 00:00:00 Completed Influenza Virus Vaccine 2017-05-26 00:00:00 Completed [facility] TDAP 2017-05-26 00:00:00 Completed [facility] Influenza Virus Vaccine Quad IM 3+ YRS 2017-05-26 00:00:00 Completed [facility] Influenza Virus Vaccine 2017-05-26 00:00:00 Completed [facility] TDAP 2017-05-26 00:00:00 Completed [facility] Influenza Virus Vaccine Quad IM 3+ YRS 2017-05-26 00:00:00 Completed [facility] Influenza Virus Vaccine 2017-05-26 00:00:00 Completed [facility] TDAP 2017-05-26 00:00:00 Completed [facility] Influenza Virus Vaccine Quad IM 3+ YRS 2017-05-26 00:00:00 Completed [facility] Influenza Virus Vaccine Quad IM 3+ YRS 2016-02-25 00:00:00 Completed [facility] Influenza Virus Vaccine Quad IM 3+ YRS 2016-02-25 00:00:00 Completed Influenza Virus Vaccine Quad IM 3+ YRS 2016-02-25 00:00:00 Completed [facility] Influenza Virus Vaccine Quad IM 3+ YRS 2016-02-25 00:00:00 Completed [facility] Influenza Virus Vaccine Quad IM 3+ YRS 2016-02-25 00:00:00 Completed [facility] Influenza Virus Vaccine Quad IM 3+ YRS Unknown Completed [facility] TDAP Unknown Completed [facility] Influenza Virus Vaccine Unknown Completed [facility] Influenza Virus Vaccine Recomb Quad IM, Preserv and ABX Free 18-64 YRS Unknown Completed [facility] HEPLISAV HEP B, ADULT 2 DOSE, IM Unknown Completed [facility] Pneumococcal Polysaccharide, PPSV23 (PNEUMOVAX) Unknown Completed [facility] SARS-COV-2 COVID-19 MODERNA 12+ YRS VACCINE Unknown Completed [facility] Pneumococcal 20 Conjugate, PCV20 (Prevnar 20) Unknown Completed [facility] Influenza Virus Vaccine Quad IM 3+ YRS Unknown Completed [facility] TDAP Unknown Completed [facility] Influenza Virus Vaccine Unknown Completed [facility] Influenza Virus Vaccine Recomb Quad IM, Preserv and ABX Free 18-64 YRS Unknown Completed [facility] HEPLISAV HEP B, ADULT 2 DOSE, IM Unknown Completed [facility] Pneumococcal Polysaccharide, PPSV23 (PNEUMOVAX) Unknown Completed [facility] SARS-COV-2 COVID-19 MODERNA 12+ YRS VACCINE Unknown Completed [facility] Pneumococcal 20 Conjugate, PCV20 (Prevnar 20) Unknown Completed [facility] Influenza Virus Vaccine Quad IM 3+ YRS Unknown Completed [facility] TDAP Unknown Completed [facility] Influenza Virus Vaccine Unknown Completed [facility] Influenza Virus Vaccine Recomb Quad IM, Preserv and ABX Free 18-64 YRS Unknown Completed [facility] HEPLISAV HEP B, ADULT 2 DOSE, IM Unknown Completed [facility] Pneumococcal Polysaccharide, PPSV23 (PNEUMOVAX) Unknown Completed [facility] SARS-COV-2 COVID-19 MODERNA 12+ YRS VACCINE Unknown Completed [facility] Pneumococcal 20 Conjugate, PCV20 (Prevnar 20) Unknown Completed [facility] Vital Signs Vital Name Observation Time Observation Value Comments S ource Systolic blood pressure 2024-10-10 16:49:00 109 mm[Hg] [facility] Diastolic blood pressure 2024-10-10 16:49:00 85 mm[Hg] [facility] Heart rate 2024-10-10 16:49:00 53 /min [facility] Body temperature 2024-10-10 16:49:00 36.61 Danya [facility] Respiratory rate 2024-10-10 16:49:00 17 /min [facility] Oxygen saturation in Arterial blood by Pulse oximetry 2024-10-10 16:49:00 100 /min [facility] Body height 2024-10-10 13:09:00 157.5 cm [facility] Body weight 2024-10-10 13:09:00 126.1 kg [facility] BMI 2024-10-10 13:09:00 50.85 kg/m2 [facility] Systolic blood pressure 2024-06-16 03:51:00 115 mm[Hg] [facility] Diastolic blood pressure 2024-06-16 03:51:00 73 mm[Hg] [facility] Heart rate 2024-06-16 03:51:00 81 /min [facility] Body temperature 2024-06-16 03:51:00 37.22 Danya [facility] Respiratory rate 2024-06-16 03:51:00 18 /min [facility] Body height 2024-06-16 03:51:00 157.5 cm [facility] Body weight 2024-06-16 03:51:00 143.79 kg [facility] BMI 2024-06-16 03:51:00 57.98 kg/m2 [facility] Oxygen saturation in Arterial blood by Pulse oximetry 2024-06-16 03:51:00 96 /min [facility] Systolic blood pressure 2024-05-11 05:07:00 151 mm[Hg] [facility] Diastolic blood pressure 2024-05-11 05:07:00 106 mm[Hg] [facility] Heart rate 2024-05-11 05:07:00 110 [facility] Body temperature 2024-05-11 05:07:00 37.67 Danya [facility] Respiratory rate 2024-05-11 05:07:00 15 /min [facility] Oxygen saturation in Arterial blood by Pulse oximetry 2024-05-11 05:07:00 98 /min [facility] Body height 2024-05-11 03:24:00 157.5 cm [facility] Body weight 2024-05-11 03:24:00 160.12 kg [facility] BMI 2024-05-11 03:24:00 64.56 kg/m2 [facility] Systolic blood pressure 2024-04-16 04:58:00 106 mm[Hg] [facility] Diastolic blood pressure 2024-04-16 04:58:00 64 mm[Hg] [facility] Heart rate 2024-04-16 04:58:00 74 /min [facility] Body temperature 2024-04-16 04:58:00 36.72 Danya [facility] Respiratory rate 2024-04-16 04:58:00 16 /min [facility] Oxygen saturation in Arterial blood by Pulse oximetry 2024-04-16 04:58:00 95 /min [facility] Body height 2024-04-16 02:12:00 157.5 cm [facility] Body weight 2024-04-16 02:12:00 145.151 kg [facility] BMI 2024-04-16 02:12:00 58.53 kg/m2 [facility] Systolic blood pressure 2024-01-15 08:54:00 124 mm[Hg] [facility] Diastolic blood pressure 2024-01-15 08:54:00 72 mm[Hg] [facility] Heart rate 2024-01-15 08:54:00 83 /min [facility] Body temperature 2024-01-15 08:54:00 36.72 Danya [facility] Respiratory rate 2024-01-15 08:54:00 24 /min [facility] Oxygen saturation in Arterial blood by Pulse oximetry 2024-01-15 08:54:00 100 /min [facility] Body height 2024-01-15 04:27:00 157.5 cm [facility] Body weight 2024-01-15 04:27:00 159.213 kg [facility] BMI 2024-01-15 04:27:00 64.20 kg/m2 [facility] Systolic blood pressure 2023-12-24 02:35:00 130 mm[Hg] [facility] Diastolic blood pressure 2023-12-24 02:35:00 74 mm[Hg] [facility] Heart rate 2023-12-24 02:35:00 65 /min [facility] Body temperature 2023-12-24 02:35:00 36.83 Danya [facility] Respiratory rate 2023-12-24 02:35:00 18 /min [facility] Oxygen saturation in Arterial blood by Pulse oximetry 2023-12-24 02:35:00 98 /min [facility] Body height 2023-12-24 00:15:00 157.5 cm [facility] Body weight 2023-12-24 00:15:00 199.583 kg [facility] BMI 2023-12-24 00:15:00 80.48 kg/m2 [facility] Systolic blood pressure 2023-06-01 20:12:58 153 mm[Hg] [facility] Diastolic blood pressure 2023-06-01 20:12:58 84 mm[Hg] [facility] Heart rate 2023-06-01 20:12:58 79 /min [facility] Body temperature 2023-06-01 20:12:58 36.72 Danya [facility] Respiratory rate 2023-06-01 20:12:58 18 /min [facility] Oxygen saturation in Arterial blood by Pulse oximetry 2023-06-01 20:12:58 99 /min [facility] Body height 2023-06-01 18:36:00 157.5 cm [facility] Body weight 2023-06-01 18:36:00 154.223 kg [facility] BMI 2023-06-01 18:36:00 62.19 kg/m2 [facility] Systolic blood pressure 2023-02-17 03:00:00 128 mm[Hg] [facility] Diastolic blood pressure 2023-02-17 03:00:00 77 mm[Hg] [facility] Heart rate 2023-02-17 03:00:00 81 /min [facility] Respiratory rate 2023-02-17 03:00:00 18 /min [facility] Oxygen saturation in Arterial blood by Pulse oximetry 2023-02-17 03:00:00 100 /min [facility] Body temperature 2023-02-17 01:13:00 36.89 Danya [facility] Body height 2023-02-17 01:13:00 157.5 cm [facility] Body weight 2023-02-17 01:13:00 146.965 kg [facility] BMI 2023-02-17 01:13:00 59.26 kg/m2 [facility] Systolic blood pressure 2020-09-26 01:51:00 138 mm[Hg] [facility] Diastolic blood pressure 2020-09-26 01:51:00 77 mm[Hg] [facility] Heart rate 2020-09-26 01:51:00 88 /min [facility] Respiratory rate 2020-09-26 01:51:00 17 /min [facility] Oxygen saturation in Arterial blood by Pulse oximetry 2020-09-26 01:51:00 99 /min [facility] Body temperature 2020-09-25 22:02:00 36.94 Danya [facility] Body weight 2020-09-25 22:02:00 149.687 kg [facility] BMI 2020-09-25 22:02:00 60.36 kg/m2 [facility] Procedures Procedure Date / Time Performed Performing Clinician Source CT ABDOMEN PELVIS W CONTRAST 2024-10-10 15:35:36 Gio Jordan [facility] LIPASE 2024-10-10 13:35:00 Jordan Powers [facility] COMP. METABOLIC PANEL ([id number]) 2024-10-10 13:35:00 Gio [facility] CBC WITH DIFF 2024-10-10 13:35:00 Jordan Powers [facility] URINALYSIS 2024-10-10 13:35:00 [facility] XR KNEE 3 VW LEFT 2024-06-16 04:18:08 [facility] S[facility] FOR GROUP A 2024-05-11 03:27:00 Singer [facility] INFLUENZA A/B RSV COVID NAAT 2024-05-11 03:27:00 Slaughter, [facility] POCT GLUCOSE (AUTOMATED) 2024-04-16 04:56:00 Francisca Stafford [facility] POCT GLUCOSE (AUTOMATED) 2024-04-16 04:22:00 Francisca Stafford [facility] COMP. METABOLIC PANEL ([id number]) 2024-04-16 03:14:00 Francisca Stafford [facility] CBC WITH DIFF 2024-04-16 03:14:00 Francisca Stafford [facility] AC PANEL 21 + LACTIC ACID 2024-04-16 03:13:00 Francisca Stafford [facility] POCT GLUCOSE (AUTOMATED) 2024-04-16 02:46:00 Francisc[facility] Stafford [facility] [facility] EKG-12 LEAD 2024-01-15 08:17:22 Donovan Ayala [facility] POCT TEST 2024-01-15 07:50:00 Miryam Ayala [facility] URINALYSIS 2024-01-15 07:49:00 Viridiana Diallo [facility] CBC WITH DIFF 2024-01-15 07:04:00 Donovan Ayala [facility] TROPONIN I 2024-01-15 07:03:00 Donovan Ayala [facility] COMP. METABOLIC PANEL ([id number]) 2024-01-15 07:03:00 Donovan Ayala [facility] INFLUENZA A/B RSV COVID NAAT 2024-01-15 07:03:00 Donovan Ayala [facility] N-TERMINAL PRO-BNP 2024-01-15 07:03:00 Charli Ayala [facility] XR CHEST 2 VW 2024-01-15 05:15:48 Donovan Ayala [facility] POCT GLUCOSE(AGE >30DAYS) 2023-12-24 02:01:00 Viridiana Diallo [facility] POCT GLUCOSE (AUTOMATED) 2023-12-24 02:00:00 Viridiana Diallo [facility] POCT GLUCOSE (AUTOMATED) 2023-12-24 01:12:00 Viridiana Diallo [facility] LIPASE 2023-12-24 01:05[facility] METABOLIC PANEL ([id number]) 2023-12-24 01:05:00 Viridiana Diallo [facility] CBC WITH DIFF 2023-12-24 01:05:00 Viridiana Diallo [facility] URINALYSIS 2023-12-24 01:05:00 Viridiana Diallo [facility] POCT GLUCOSE (AUTOMATED) 2023-12-24 00:19:00 Viridiana Diallo [facility] XR CHEST 1 VW 2023-06-01 19:53:38 Sebas Hollis [facility] ASSIGNMENT OF BENEFITS 2023-06-01 19:06:12 Docto r Unassigned, [place] [facility] CONSENT/REFUSAL FOR DIAGNOSIS AND TREATMENT 2023-06-01 18:27:08 Doctor Unassigned, [place] [facility] BASIC METABOLIC PANEL (NA, K, CL, CO2, GLUCOSE, BUN, CREATININE, CA) 2023-02-17 02:12:00 Asaf Groves [facility] NOTICE OF PRIVACY PRACTICES 2023-02-17 00:55:31 Doctor Unassigned, [place] [facility] CONSENT/REFUSAL FOR DIAGNOSIS AND TREATMENT 2023-02-17 00:54:24 Doctor Unassigned, [place] [facility] COMP. METABOLIC PANEL ([id number]) 2020-09-26 00:09:00 Gerardo Evans [facility] CBC WITH DIFF 2020-09-26 00:09:00 Gerardo Evans [facility] URINALYSIS 2020-09-26 00:09:00 [facility]ID NOW RAPID TESTING) 2020-09-26 00:09:00 Gerardo Evans [facility] NOTICE OF PRIVACY PRACTICES 2020-09-25 21:56:12 Doctor Unassigned, [place] [facility] Encounters Start Date/Time End Date/Time Encounter Type Admission Type Attending [facility] Care Department Encounter ID Source 2021-04-12 13:15:36 Emergency [facility] [id number] [facility] 2024-10-10 08:09:00 2024-10-10 11:49:00 Emergency X JORDAN POWERS DONNELL [facility] ERT [id number] [facility] 2024-10-10 08:09:00 2024-10-10 11:49:00 Emergency Jordan Powers [facility] 1..840.114 350.1.13.10 4.2.7.2.686 [id number] [id number] [facility] 2024-06-15 21:54:00 2024-06-15 23:07:00 Emergency X JONY VERA TIMOTHY [facility] ERT [id number] [facility] 2024-06-15 21:54:00 2024-06-15 23:07:00 Emergency Jony Vera [facility] 1..840.114 350.1.13.10 4.2.7.2.686 [id number] 084 [id number] [facility] 2024-05-10 21:27:00 2024-05-10 23:12:00 Emergency X SAILAJA SLAUGHTER PHILLIP [facility] ERT [id number] [facility] 2024-05-10 21:27:00 2024-05-10 23:12:00 Emergency Sailaja Slaughter [facility] ..840.114 350.1.13.10 4.2.7.2.686 [id number] [id number] [facility] 2024-04-15 20:15:00 2024-04-15 23:18:00 Emergency X FRANCISCA STAFFORD ERIN [facility] ERT [id number] [facility] 2024-04-15 20:15:00 2024-04-15 23:18:00 Emergency Francisca Stafford [facility] 1.2840.114 350.1.13.10 4.2.7.2.686 [id number] [id number] [facility] 2024-01-14 23:31:00 2024-01-15 04:01:00 Emergency X VIRIDIANA DIALLO WAKILI [facility] ERT [id number] [facility] 2024-01-14 23:31:00 2024-01-15 04:01:00 Emergency Aderibigbe, Viridiana Arreaga [facility] 1.2840.114 350.1.13.10 4.2.7.2.686 [id number] 084 [id number] [facility] 2023-12-23 19:19:00 2023-12-23 21:38:00 Emergency X VIRIDIANA DIALLO WAKILI [facility] ERT [id number] [facility] 2023-12-23 19:19:00 2023-12-23 21:38:00 Emergency Viridiana Diallo [facility] 1.2840.114 350.1.13.10 4.2.7.2.686 [id number] 084 [id number] [facility] 2023-06-01 12:38:00 2023-06-01 14:57:00 Emergency X ALI, AMIR DINESH AMIR [facility] ERT [id number] [facility] 2023-06-01 12:38:00 2023-06-01 14:57:00 Emergency Ali, Amir [facility] 1.2840.114 350.1.13.10 4.2.7.2.686 [id number] [id number] [facility] 2023-02-16 20:15:00 2023-02-16 22:47:00 Emergency X ASAF GROVES [facility] ERT [id number] [facility] 2023-02-16 20:15:00 2023-02-16 22:47:00 Emergency Julius [facility] 1.2.840.114 350.1.13.10 4.2.7.2.686 [id number] [id number] [facility] 2021-08-14 00:00:00 2021-08-14 00:00:00 Telephone Melanie Christine [facility] 1.2.840.114 350.1.13.10 4.2.7.2.686 [id number] [facility] 2020-11-11 00:00:00 2020-11-11 00:00:00 Telephone Melanie Christine [facility] 1.2.840.114 350.1.13.10 4.2.7.2.686 [id number] [facility] 2020-09-25 17:03:00 2020-09-25 20:55:00 Emergency JuanchojacquelineGerardo [facility] 1.2.840.114 350.1.13.10 4.2.7.2.686 [id number] 084 [id number] [facility] Results Test Description Test Time Test Comments Results Result Comments Source CT Abdomen pelvis w contrast 2024-09 15:48:[address] Abdomen and Pelvis with intravenous contrast. CLINICAL HISTORY: LLQ Abdominal pain. DOSE: Up-to-date CT equipment and radiation dose reduction techniques wereemployed. CTDIvol: ?34.23 mGy. DLP: ?1705.41 mGy-cm. TECHNIQUE : Contiguous axial imaging from the level of the lung basesthrough the pubic symphysis were performed after the uncomplicatedadministration of nonionic contrast material. ?Coronal and sagittalreconstructions were obtained. Auto mA and/or iterative reconstruction wereused to reduce radiation dose. FINDINGS: ? Lower lungs: Clear. No pleural effusion or pericardial effusion. Liver, Gallbladder and Spleen: Enlarged liver with prominent Fitz's lobeconfiguration. Liver is measuring up to 21 cm without any focal enhancinglesions visualized. Multiple gallstones noted without any signs of acutecholecystitis. Spleen is 11.2 x 4.8 cm in size. Biliary ducts and thepancreatic duct appear of normal size. Peritoneum: ?No free air or free fluid. No lymphadenopathy. Pancreas and Adrenals: ?Unremarkable pancreas and adrenal glands. Kidneys and Ureters: ?No visible calculi in the renal collecting systems. No hydroureter or hydronephrosis. 12 mm hypodense lesion in the anteriorinterpolar region of left kidney is likely a small simple renal cyst. Vessels: Unremarkable. Retroperitoneum: No abnormal fluid or lymphadenopathy. Bowel: ?Constipation with retained fecal material and air noted throughoutlarge bowel. Diverticulosis of redundant segment of sigmoid and distaldescending colon noted without any acute changes. Normal appendix isvisualized. Small bowel gas pattern is unremarkable. S/P vertical banded gastroplasty and retrocolic Hmwm-za-Mjwfuokratownormyl. Bladder and Reproductive Organs: S/P hysterectomy. Air bubble is seen inthe urinary bladder lumen from unknown etiology. Bones: ?Lower thoracic degenerative spondylosis. Minimal L5-D6chhyhsulhniyjn. No acute bony abnormalities or any acute bony changes. Soft tissues: Small right paraumbilical fat containing abdominal wallhernia without any complications CONCLUSION:1. Constipation, diverticulosis of redundant sigmoid colon without anyacute changes of diverticulitis. Small reactive lymph nodes noted in theright lower quadrant of the abdomen. Normal appendix is visualized.2. Hepatomegaly. S/P vertical banded gastroplasty and retrocolic Jkvk-ru-Blkczdljmjzfcoxolf.3. Gallstones without any signs of acute cholecystitis. [facility] [id number] 14:16:13* Test Item Value Reference Range Interpretation Comme nts LIPASE (test code = 0452457080) 198 U/L 0-220 Lab Interpretation (test cod e = 47064-3) Normal [facility] with Qchjmlvmsluh9874-97-13 13:50:29* Test Item Value Reference Range Interpretation Comme nts WBC (test code = 6690-2) 8.36 4.30-11.10 RBC (test code = 789-8) 4.48 3.93-5.25 HGB (test code = 718-7) 13.3 g/dL 11.6-15.0 HCT (test code = 4544-3) 40.7 % 35.7-45.2 MCV (test code = 787-2) 90.8 fL 80.6-95.5 MCH (test code = 785-6) 29.7 pg 25.9-32.8 MCHC (test code = 786-4) 32.7 g/dL 31.6-35.1 RDW-SD (test code = 76167-7) 43.8 fL 39.0-49.9 RDW-CV (test code = 788-0) 13.2 % 12.0-15.5 PLT (test code = 777-3) 218 166-358 MPV (test code = 51276-7) 10.7 fL 9.5-12.9 NRBC/100 WBC (test code = 0011079492) 0 0.0-10.0 NRBC x10^3 (test code = 2201009312) See_Comment [Automated me ssage] The system which generated this result transmitted reference range: 10*3/?L. The reference range was not used to interpret this result as normal/abnormal. GRAN MAT (NEUT) % (test code = 770-8) 54.4 % IMM GRAN % (test code = 6903118383) 0.2 % LYMPH % (test code = 736-9) 36.5 % MONO % (test code = 5905-5) 7.1 % EOS % (test code = 713-8) 1.2 % BASO % (test code = 706-2) 0.6 % GRAN MAT x10^3(ANC) (test code = 6953261380) 4.55 10*3/uL 1.88-7.09 IMM GRAN x10^3 (test code = 2388145847) 0.00-0.06 LYMPH x10^3 (test code = 731-0) 3.05 10*3/uL 1.32-3.29 MONO x10^3 (test code = 742-7) 0.59 10*3/uL 0.33-0.92 EOS x10^3 (test code = 711-2) 0.1 10*3/uL 0.03-0.39 BASO x10^3 (test code = 704-7) 0.05 10*3/uL 0.01-0.07 [facility] [id number] 04:41:05XR KNEE 3 VW LEFT Indication: injury/pain ? ?Pain Comparison: None Ordering Clinician: JONY VERA Technique: Frontal sunrise and lateral views are submitted forinterpretation. Technical Quality: Adequate Findings:No acute fractures or dislocations. ? Mild to moderate tricompartmental degenerative changes as evidence byosteophyte formation No erosions or periosteal reaction. Moderate suprapatellar knee joint effusion[facility] GLU[facility] ([facility]ATED)2024-04-16 05:00:49* Test Item Value Reference Range Interpretation Comme nts POCT GLU (test code = 3037814463) 313 mg/dL 70-110 H Lab Interpretation (test cod e = 30054-3) Abnormal [facility] GLUCOSE (AUTOMATED)2024-04-16 04:33:22* Test Item Value Reference Range Interpretation Comme nts POCT GLU (test code = 4769556624) 373 mg/dL 70-110 H Lab Interpretation (test cod e = 17236-6) [facility] (70042)2024-04-16 04:00:45* Test Item Value Reference Range Interpretation Comme nts NA (test code = 8622111858) 133 mmol/L 135-145 L K (test code = 7920655918) 3.7 mmol/L 3.5-5.0 CL (test code = 6100443002) 102 mmol/L 98-108 CO2 TOTAL (test code = 2416506906) 24 mmol/L 23-31 AGAP (test code = 4458385116) 7 2-16 BUN (test code = 3569351787) 11 mg/dL 7-23 GLUCOSE (test code = 7818655082) 473 mg/dL 70-110 HH CREATININE (test code = 2160-0) 0.61 mg/dL 0.50-1.04 TOTAL BILI (test code = 1576796492) 0.4 mg/dL 0.1-1.1 CALCIUM (test code = 3950316733) 8.8 mg/dL 8.6-10.6 T PROTEIN (test code = 6508582991) 6.9 g/dL 6.3-8.2 ALBUMIN (test code = 9699367669) 3.6 g/dL 3.5-5.0 ALK PHOS (test code = 4788584705) 106 U/L 34-122 ALTv (test code = 1742-6) 74 U/L 5-35 H AST(SGOT) (test code = 4804789930) 47 U/L 13-40 H eGFR (test code = 42581-3) 115.4 mL/min/1.73m2 CKD-EPI eGFR (2020). Assuming creatinine has been stable day-to-day for at least three months, the eGFR indicates Category G1 (>= 90 mL/min/1.73 m2) Lab Interpretation (test code = 10854-7) Abnormal [facility] with Ovhy2879-23-01 03:41:00* Test Item Value Reference Range Interpretation Comme nts WBC (test code = 6690-2) 7.89 4.30-11.10 RBC (test code = 789-8) 4.68 3.93-5.25 HGB (test code = 718-7) 13.1 g/dL 11.6-15.0 HCT (test code = 4544-3) 40.2 % 35.7-45.2 MCV (test code = 787-2) 85.9 fL 80.6-95.5 MCH (test code = 785-6) 28.0 pg 25.9-32.8 MCHC (test code = 786-4) 32.6 g/dL 31.6-35.1 RDW-SD (test code = 85990-4) 40.3 fL 39.0-49.9 RDW-CV (test code = 788-0) 13.0 % 12.0-15.5 PLT (test code = 777-3) 229 166-358 MPV (test code = 98205-1) 10.6 fL 9.5-12.9 NRBC/100 WBC (test code = 6631311667) 0.0 0.0-10.0 NRBC x10^3 (test code = 3156759754) See_Comment [Automated me ssage] The system which generated this result transmitted reference range: 10*3/?L. The reference range was not used to interpret this result as normal/abnormal. GRAN MAT (NEUT) % (test code = 770-8) 50.3 % IMM GRAN % (test code = 8835683110) 0.30 % LYMPH % (test code = 736-9) 39.9 % MONO % (test code = 5905-5) 7.4 % EOS % (test code = 713-8) 1.5 % BASO % (test code = 706-2) 0.6 % GRAN MAT x10^3(ANC) (test code = 8395336717) 3.97 10*3/uL 1.88-7.09 IMM GRAN x10^3 (test code = 1402443162) 0.00-0.06 LYMPH x10^3 (test code = 731-0) 3.15 10*3/uL 1.32-3.29 MONO x10^3 (test code = 742-7) 0.58 10*3/uL 0.33-0.92 EOS x10^3 (test code = 711-2) 0.12 10*3/uL 0.03-0.39 BASO x10^3 (test code = 704-7) 0.05 10*3/uL 0.01-0.07 [facility] GLU[facility]SE (AUTOMATED)2024-04-16 02:51:27* Test Item Value Reference Range Interpretation Comme nts POCT GLU (test code = 9751795018) 463 mg/dL 70-110 Lab Interpretation (test cod e = 26241-7) Abnormal [facility] [id number] 07:50:00* Test Item Value Reference Range Interpretation Comme nts POCT PREG (test code = 1605) Negative On board controls acceptable with C Line (test code = 3574) Yes POCT PREG LOT # (test code = 3575) [id number] POCT PREG TEST DATE ( test code = 3576) 2024-10-20 Lab Interpretation (test cod e = 31902-5) [facility] [id number] 06:01:32Ordering physician: DONOVAN AYALA Indication: Cough Comparison: Chest dated 06/01/2023 Technical quality: Limited by body habitus Findings: Single AP view of the chest. The cardiopericardial silhouette iswithin normal limits. The lungs are clear bilaterally. The visualized bonythorax is intact.[facility] ([facility])2023-12-24 02:01:46* Test Item Value Reference Range Interpretation Comme nts POCT GLU (test code = 3842670503) 339 mg/dL 70-110 H Lab Interpretation (test cod e = 24703-4) Ab[facility] GLUCOSE(AGE >30DAYS)2023-12-24 02:01:00* Test Item Value Reference Range Interpretation Comme nts POCT Glu (age>30days) (test code = 3342) 339 mg/dL 70-110 A Lab Interpretation (test cod e = 64347-8) [facility] Icwr0303-20-87 01:32:10* Test Item Value Reference Range Interpretation Comme nts WBC (test code = 6690-2) 8.60 4.30-11.10 RBC (test code = 789-8) 5.17 3.93-5.25 HGB (test code = 718-7) 14.3 g/dL 11.6-15.0 HCT (test code = 4544-3) 44.5 % 35.7-45.2 MCV (test code = 787-2) 86.1 fL 80.6-95.5 MCH (test code = 785-6) 27.7 pg 25.9-32.8 MCHC (test code = 786-4) 32.1 g/dL 31.6-35.1 RDW-SD (test code = 71590-1) 39.5 fL 39.0-49.9 RDW-CV (test code = 788-0) 12.8 % 12.0-15.5 PLT (test code = 777-3) 256 166-358 MPV (test code = 68264-4) 10.3 fL 9.5-12.9 NRBC/100 WBC (test code = 4312129026) 0.0 0.0-10.0 NRBC x10^3 (test code = 0785943655) See_Comment [Automated messa ge] The system which generated this result transmitted reference range: 10*3/?L. The reference range was not used to interpret this result as normal/abnormal. GRAN MAT (NEUT) % (test code = 770-8) 50.8 % IMM GRAN % (test code = 4177556974) 0.10 % LYMPH % (test code = 736-9) 40.9 % MONO % (test code = 5905-5) 6.0 % EOS % (test code = 713-8) 1.6 % BASO % (test code = 706-2) 0.6 % GRAN MAT x10^3(ANC) (test code = 2145631610) 4.36 10*3/uL 1.88-7.09 IMM GRAN x10^3 (test code = 7181870314) 0.00-0.06 LYMPH x10^3 (test code = 731-0) 3.52 10*3/uL 1.32-3.29 H MONO x10^3 (test code = 742-7) 0.52 10*3/uL 0.33-0.92 EOS x10^3 (test code = 711-2) 0.14 10*3/uL 0.03-0.39 BASO x10^3 (test code = 704-7) 0.05 10*3/uL 0.01-0.07 Lab Interpretation (test code = 41005-3) [facility] (13916)2023-12-24 01:31:50* Test Item Value Reference Range Interpretation Comme nts NA (test code = 0538804561) 135 mmol/L 135-145 K (test code = 8645168060) 3.9 mmol/L 3.5-5.0 CL (test code = 1858470653) 103 mmol/L 98-108 CO2 TOTAL (test code = 1189947294) 25 mmol/L 23-31 AGAP (test code = 2008775704) 7 2-16 BUN (test code = 3784375993) 11 mg/dL 7-23 GLUCOSE (test code = 8986595886) 436 mg/dL 70-110 H CREATININE (test code = 2160-0) 0.59 mg/dL 0.50-1.04 TOTAL BILI (test code = 0501704081) 0.6 mg/dL 0.1-1.1 CALCIUM (test code = 2088639117) 8.7 mg/dL 8.6-10.6 T PROTEIN (test code = 8999037970) 7.5 g/dL 6.3-8.2 ALBUMIN (test code = 5903202254) 3.7 g/dL 3.5-5.0 ALK PHOS (test code = 6598394203) 130 U/L 34-122 H ALTv (test code = 1742-6) 107 U/L 5-35 H AST(SGOT) (test code = 4614144376) 63 U/L 13-40 H eGFR (test code = 62084-9) 117.0 mL/min/1.73m2 CKD-EPI eGFR (2020). Assuming creatinine has been stable day-to-day for at least three months, the eGFR indicates Category G1 (>= 90 mL/min/1.73 m2) Lab Interpretation (test code = 70942-5) [facility] 01:31:50* Test Item Value Reference Range Interpretation Comme nts LIPASE (test code = 8574441371) 193 U/L 0-220 Lab Interpretation (test cod e = 99262-0) [facility] GLU[facility]SE (AUTOMATED)2023-12-24 01:13:57* Test Item Value Reference Range Interpretation Comme nts POCT GLU (test code = 6718486170) 400 mg/dL 70-110 H Lab Interpretation (test cod e = 92613-1) Abnormal [facility] GLUCOSE (AUTOMATED)2023-12-24 00:20:58* Test Item Value Reference Range Interpretation Comme nts POCT GLU (test code = 2489145449) 436 mg/dL 70-110 H Lab Interpretation (test cod e = 40825-1) Abnormal [facility] METABOLIC PANEL (NA, K, CL, CO2, GLUCOSE, BUN, CREATININE, CA)2023-02-17 02:44:44* Test Item Value Reference Range Interpretation Comme nts NA (test code = 4801853333) 136 mmol/L 135-145 K (test code = 4902411295) 4.0 mmol/L 3.5-5.0 CL (test code = 0247698671) 104 mmol/L 98-108 CO2 TOTAL (test code = 3551026797) 26 mmol/L 23-31 AGAP (test code = 9300457115) 6 2-16 BUN (test code = 0451054175) 13 mg/dL 7-23 GLUCOSE (test code = 0414419556) 357 mg/dL 70-110 H CREATININE (test code = 4947957801) 0.53 mg/dL 0.50-1.04 CALCIUM (test code = 8910641549) 8.9 mg/dL 8.6-10.6 eGFR (test code = 6950050210) 128.4 mL/min/1.73m2 PADMA (test code = PADMA) Association of [...] or abnormalities in imaging tests). Lab Interpretation (test code = 51996-8) [facility] 00:53:58* Test Item Value Reference Range Interpretation Comme nts APPEARANCE (test code = 2353918525) Hazy Clear A COLOR (test code = 3346989396) Yellow Yellow PH (test code = 1150790711) 4.8-8.0 SP GRAVITY (test code = 2894398006) 1.003-1.030 GLU U QUAL (test code = 5294688216) Normal Normal BLOOD (test code = 4526042632) Negative Negative KETONES (test code = 8847402508) Negative Negative PROTEIN (test code = 2887-8) Negative Negative UROBILIN (test code = 1261595298) 4.0 mg/dL Normal A BILIRUBIN (test code = 8241567134) Negative Negative NITRITE (test code = 5941552486) Positive Negative A LEUK SADIE (test code = 7573785211) Negative Negative RBC/HPF (test code = 5902885561) See_Comment [Automated [employer]] The system which generated this result transmitted reference range: 0 - 3 HPF. The reference range was not used to interpret this result as normal/abnormal. WBC/HPF (test code = 1357027826) See_Comment H [[employer]ated [employer]] The system which generated this result transmitted reference range: 0 - 5 HPF. The reference range was not used to interpret this result as normal/abnormal. BACTERIA (test code = 9256663473) Many Negative A MUCOUS (test code = 7320361111) Slight Negative LPF A AMORPHOUS (test code = 2872534180) Rare Rare HPF SQ EPITH (test code = 1755834390) HPF Lab Interpretation (test code = 35204-4) [facility] (98584)2020-09-26 00:48:58* Test Item Value Reference Range Interpretation Comme nts NA (test code = 5228601924) 144 mmol/L 135-145 K (test code = 2743576124) 3.5 mmol/L 3.5-5.0 CL (test code = 8314448469) 107 mmol/L 98-108 CO2 TOTAL (test code = 5893736707) 30 mmol/L 23-31 AGAP (test code = 6242176924) 2-16 BUN (test code = 3009290851) 12 mg/dL 7-23 GLUCOSE (test code = 5580703830) 80 mg/dL 70-110 CREATININE (test code = 8183327924) 0.69 mg/dL 0.50-1.04 TOTAL BILI (test code = 8722001145) 0.5 mg/dL 0.1-1.1 CALCIUM (test code = 1633197264) 9.0 mg/dL 8.6-10.6 T PROTEIN (test code = 2831083800) 7.5 g/dL 6.3-8.2 ALBUMIN (test code = 6764476219) 4.2 g/dL 3.5-5.0 ALK PHOS (test code = 5678026924) 80 U/L 34-122 ALTv (test code = 1742-6) 42 U/L 5-35 H AST(SGOT) (test code = 8478983761) 36 U/L 13-40 eGFR (test code = 4629699031) mL/min/1.73m2 PADMA (test code = PADMA) Association of [...] or abnormalities in imaging tests). Lab Interpretation (test code = 18970-0) [facility] (ID NOW RAPID TESTING)2020-09-26 00:43:40* Test Item Value Reference Range Interpretation Comme nts SARS-CoV-2 Rapid ID NOW (test code = 52463-2) Not Detected Not Detected PADMA (test code = PADMA) ID NOW COVID-19 As say is an isothermal nucleic acid amplification test intended for the qualitative detection of nucleic acid from SARS-CoV-2 viral RNA in nasopharyngeal (COLLAR SETTER) specimens. It is used under Emergency Use [...] patient testing if clinically indicated. Lab Interpretation (test code = 57301-9) [facility] with Ertwncpbdkey1344-19-52 00:38:16* Test Item Value Reference Range Interpretation Comme nts WBC (test code = 6690-2) See_Comment [Automated [employer]] The system which generated this result transmitted reference range: 4.30 - 11.10 10*3/?L. The reference range was not used to interpret this result as normal/abnormal. RBC (test code = 789-8) See_Comment [Automated [employer]] The system which generated this result transmitted reference range: 3.93 - 5.25 10*6/?L. The reference range was not used to interpret this result as normal/abnormal. HGB (test code = 718-7) 14.3 g/dL 11.6-15.0 HCT (test code = 4544-3) 45.4 % 35.7-45.2 H MCV (test code = 787-2) 90.3 fL 80.6-95.5 MCH (test code = 785-6) 28.4 pg 25.9-32.8 MCHC (test code = 786-4) 31.5 g/dL 31.6-35.1 L RDW-SD (test code = 12817-3) 43.3 fL 39.0-49.9 RDW-CV (test code = 788-0) 13.2 % 12.0-15.5 PLT (test code = 777-3) See_Comment [Automated messa ge] The system which generated this result transmitted reference range: 166 - 358 10*3/?L. The reference range was not used to interpret this result as normal/abnormal. MPV (test code = 69229-9) 9.6 fL 9.5-12.9 NRBC/100 WBC (test code = 3143806591) See_Comment [Automated [employer]] The system which generated this result transmitted reference range: 0.0 - 10.0 /100 WBCs. The reference range was not used to interpret this result as normal/abnormal. NRBC x10^3 (test code = 1559758696) <0.01 See_Comment [Automated messa ge] The system which generated this result transmitted reference range: 10*3/?L. The reference range was not used to interpret this result as normal/abnormal. GRAN MAT (NEUT) % (test code = 770-8) 51.4 % IMM GRAN % (test code = 1720658762) 0.30 % LYMPH % (test code = 736-9) 38.9 % MONO % (test code = 5905-5) 8.0 % EOS % (test code = 713-8) 0.9 % BASO % (test code = 706-2) 0.5 % GRAN MAT x10^3(ANC) (test code = 1814651762) 4.55 10*3/uL 1.88-7.09 IMM GRAN x10^3 (test code = 0263945750) 0.03 10*3/uL 0.00-0.06 LYMPH x10^3 (test code = 731-0) 3.44 10*3/uL 1.32-3.29 H MONO x10^3 (test code = 742-7) 0.71 10*3/uL 0.33-0.92 EOS x10^3 (test code = 711-2) 0.08 10*3/uL 0.03-0.39 BASO x10^3 (test code = 704-7) 0.04 10*3/uL 0.01-0.07 Lab Interpretation (test code = 82663-4) Abnormal [facility] Notes Date/Time Note Provider Source 2024-10-10 11:49:35 Pt discharged with diagnosis of generalized abd pain, abd pain, gallstones, diverticulosis, and constipation. Printed and verbal instructions reviewed with and given to pt. Prescriptions given x 3. Pt verbalized understanding of teaching, medication, and recommended follow-up. Denies questions or concerns at this time. Pt ambulatory at discharge. Appears in no apparent distress. No ataxia noted. T [facility] 2024-10-10 10:56:49 Report to diana MARTELL. [facility] 2024-10-10 08:07:37 Patient states: "Tuesday I started having pain here (left abd). It was kind of mild like when I moved a certain way or breathed. Now even if I go over a speed bump or walking" Pmhx: gastric bypass may. Kaylah Maldonado RN [facility] 2024-06-15 23:06:53 Patient given printed and verbal discharge instructions. Pt verbalized understanding of instructions, pt awake alert oriented, resp reg unlabored, skin w/d, color appropriate for race, moves all ext well,pt encouraged to follow up with pcp and or specialist. Advised to seek medical attention for new/prolonged/worsening of symptoms. No adverse reaction to meds given in ER noted upon discharge Awake, alert oriented, resp reg unlabored, skin w/d, pt leaving amb with steady gait, in no apparent distress. 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 Interpretation: negative DVT study. HEALTHCARE EMERGENCY PHYSICIAN STAFF [facility] 2024-06-15 21:47:59 Pt arrives ambulatory to ED c/o left knee pain since Tuesday. Says she felt her knee pop that day and the pain is getting worse so she came in to be seen. RA Arellano RN [facility] 2024-06-15 21:32:00 [facility] Emergency Department Note Patient Name: Lita Jalloh Date of : 1985 39 year old female Treatment Room: TX3/TX3 Primary Care Physician: Raven Manzo Patient Escorted by: Self [9] Mode of Arrival: Personal means [1] EMS Treatment Prior to ED Arrival: INSPECTION CLERK treatment: None Travel and Exposure Screening: Symptoms Does patient have any of these symptoms?: (not recorded) Exposure Screening Has patient had contact with someone with a communicable disease in the last month?: (not recorded) Diseases exposed to:: (not recorded) Is Patient ?: (not recorded) Exposure Date: (not recorded) Chief Complaint: Chief Complaint Patient presents with Knee Pain left History of Present Illness: History provided by: Patient Knee Pain Location: Knee Time since incident: 5 days Knee location: L knee Pain details: Quality: Aching and sharp Radiates to: Does not radiate Severity: Moderate Onset quality: Sudden Duration: 5 days Timing: Constant Progression: Worsening Chronicity: New Dislocation: no Foreign body present: No foreign bodies Relieved by: Nothing Worsened by: Bearing weight Ineffective treatments: Rest Associated symptoms: no back pain, no fever, no muscle weakness, no neck pain and no numbness Past Medical History/Immunizations: Past Medical History: Diagnosis Date Cellulitis Obesity Tetanus received in last 5 years: Yes Allergies: No Known Allergies Past Social History: Tobacco Use Never smoked or used smokeless tobacco. Alcohol Use No. Drug Use No. Sexual Activity Sexually active. Past Surgical History: Past Surgical History: Procedure Laterality Date SECTION two c-sections HYSTERECTOMY too much bleeding OOPHORECTOMY removed because surgeon worried about scarr tissue if he needed to go back in Review of Systems: Review of Systems Constitutional: Negative for activity change, appetite change and fever. HENT: Negative for congestion and trouble swallowing. Eyes: Negative for pain, discharge and redness. Respiratory: Negative for cough and chest tightness. Genitourinary: Negative for urgency and frequency. Musculoskeletal: Negative for back pain, neck pain and neck stiffness. Swelling and pain left knee Physical Exam: ED Triage Vitals [06/15/24 2151] Weight 143.8 kg (317 lb) Actual or estimated Height 1.575 m (5' 2") BP 115/73 Pulse 81 Resp 18 Temp 37.2 ?C (99 ?F) Temp source Oral SpO2 96 % Measured on Room air Physical Exam Constitutional: Appearance: She is obese. HENT: Head: Normocephalic and atraumatic. Cardiovascular: Rate and Rhythm: Normal rate and regular rhythm. Pulses: Normal pulses. Heart sounds: Normal heart sounds. Pulmonary: Effort: Pulmonary effort is normal. Breath sounds: Normal breath sounds. Abdominal: General: Bowel sounds are normal. There is no distension. Palpations: Abdomen is soft. Tenderness: There is no abdominal tenderness. Musculoskeletal: General: Swelling present. Cervical back: No rigidity. Comments: The left knee has swelling in both medial and lateral tenderness. There is no bony deformity. Distal pulses are intact and strong. Neurological: General: No focal deficit present. Mental Status: She is alert. Motor: No weakness. Radiology: No orders to display Lab Results: Lab Results - No data to display EKG: If EKG completed, see Procedure Note. Orders and Treatments: Orders Placed This Encounter Procedures XR Knee 3 vw left No orders of the defined types were placed in this encounter. First Provider Eval: ED Events Date/Time Event User Comments 06/15/242143 Medical Screening Begins JONY VERA DO -- 06/15/242143 First Provider Evaluation JONY VERA DO -- ED COURSE Diagnosis/Impression as of 06/15/242203 Acute pain of left knee Procedures: Procedures MDM: Medical Decision Making Patient was evaluated for the complaint of Knee Pain (left) Diagnoses considered but not limited to: Contusion Dislocation Fracture Sprain Strain. Labs:were not ordered. Imaging:Ordered, and resulted, any relevant abnormalities were considered. Procedures:were not performed. History, physical exam findings, results of visit, diagnosis, medication regimens and plan of future care have been considered. Additional MDM may be found in the ED course. Vital signs were rechecked before final disposition and determined to be stable. Amount and/or Complexity of Data Reviewed Radiology: ordered. Decision-making details documented in ED Course. Flowsheet Documentation: This patient complains of knee pain to the left. There is some swelling or effusion to the suprapatellar aspect. The patient is ambulatory in the emergency department without difficulty. The knee is not hot to the touch or erythematous. Patient has not had a fever and septic arthritis would be extremely unlikely without fever or warmth to touch at this joint. Scoring Tools: No data recorded Disposition/Condition: ED Disposition None Discharge Medications: Patient's Medications START taking these medications No medications on file CONTINUE taking these medications which have NOT CHANGED BENZOCAINE-MENTHOL (CEPACOL SORE THROAT, CRYSTAL-MEN,) LOZENGE Take 1 Lozenge by mouth every 4 (four) hours as needed for Sore throat. BENZONATATE 200 MG CAPSULE Take 1 capsule by mouth 3 (three) times daily as needed for Cough. CIPROFLOXACIN HCL 500 MG TABLET Take 1 tablet by mouth 2 (two) times daily. IBUPROFEN 800 MG TABLET Take 1 tablet by mouth every 8 (eight) hours as needed for Pain (scale 4-6) or Temp > 38.5 C. PHENAZOPYRIDINE 200 MG TABLET Take 1 tablet by mouth 3 (three) times daily. SILVER SULFADIAZINE 1 % CREAM Apply to area(s) 2 (two) times daily. SULFAMETHOXAZOLE-TRIMETHOPRIM 800-160 MG PER TABLET Take 1 tablet by mouth every 12 (twelve) hours. START taking Modified Medications as Prescribed No medications on file STOP taking these medications No medications on file Follow-up: [facility] 2024-05-10 23:12:08 Pt given printed and verbal discharge instructions regarding sore throat, Prescriptions provided Pt verbalized understanding of instructions, pt awake alert oriented, resp reg unlabored, skin w/d, color appropriate for race, moves all ext well,pt encouraged to follow up with pcp Advised to seek medical attention for new/prolonged/worsening of symptoms, Awake, alert oriented, resp reg unlabored, skin w/d, pt leaving amb with steady gait, in no apparent distress, RA Ortiz RN [facility] 2024-05-10 21:22:38 Patient arrived ambulatory for throat pain that radiates to bilateral ears that started today. Denies fever. RA Stewart RN [facility] 2024-04-15 23:18:04 Pt given printed and verbal discharge instructions regarding hyperglycemia, and headache, encouraged hydration, Pt verbalized understanding of instructions, pt awake alert oriented, resp reg unlabored, skin w/d, color appropriate for race, moves all ext well,pt encouraged to follow up with pcp Advised to seek medical attention for new/prolonged/worsening of symptoms No adverse reaction to meds given in ER noted upon discharge PIV d'cd, dressing to site, catheter in tact. Awake, alert oriented, resp reg unlabored, skin w/d, pt leaving amb with steady gait, in no apparent distress, RA Locke RN [facility] 2024-04-15 20:51:00 Patient told RN she has NIDDM and hasn't checked her sugar recently. RN got FSBG which read 463. ERP notified. Orders to follow. [facility] 2024-04-15 20:10:49 CC: Migraines, dizzy vision, and blurred vision. Pt reports she doesn't get headaches very often. Tylenol was taken at 5PM. Awake, alert, oriented, resp reg unlabored, skin intact, color appropriate for race, moves all ext without difficulty, amb RA Blount RN [facility] 2024-04-15 20:06:00 [facility] Emergency Department Note Patient Name: Lita Jalloh Date of : 1985 39 year old female Treatment Room: [address] Primary Care Physician: Raven Manzo Patient Escorted by: Self [9] Mode of Arrival: Personal means [1] EMS Treatment Prior to ED Arrival: INSPECTION CLERK treatment: Analgesic Travel and Exposure Screening: Symptoms Does patient have any of these symptoms?: (not recorded) Exposure Screening Has patient had contact with someone with a communicable disease in the last month?: (not recorded) Diseases exposed to:: (not recorded) Is Patient ?: (not recorded) Exposure Date: (not recorded) Chief Complaint: Chief Complaint Patient presents with MIGRAINE History of Present Illness: HPI Lita Jalloh is a 39 year old female presenting with frontal headache, nausea, photophobia and bilateral blurry vision that started today. Patient also reports nausea symptoms but no vomiting. Patient with hx of DM (not on insulin) and reports taking medications as prescribed. Patient denies any chest pain, SOB, fevers. Patient with other similar headaches in the past, but this one feels a little worse. Patient reports that she rarely gets headache. Patient denies any focal numbness or weakness. Past Medical History/Immunizations: Past Medical History: Diagnosis Date Cellulitis Obesity Tetanus received in last 5 years: No Allergies: No Known Allergies Past Social History: Tobacco Use Never smoked or used smokeless tobacco. Alcohol Use No. Drug Use No. Sexual Activity Sexually active. Past Surgical History: Past Surgical History: Procedure Laterality Date SECTION two c-sections HYSTERECTOMY too much bleeding OOPHORECTOMY removed because surgeon worried about scarr tissue if he needed to go back in Review of Systems: Review of Systems Constitutional: Positive for fatigue. Negative for activity change, appetite change, chills, diaphoresis and fever. HENT: Negative for congestion, facial swelling and rhinorrhea. Eyes: Positive for photophobia and visual disturbance. Respiratory: Negative for apnea, cough, choking, chest tightness, shortness of breath, wheezing and stridor. Cardiovascular: Negative for chest pain, palpitations and leg swelling. Gastrointestinal: Positive for nausea. Negative for abdominal distention, abdominal pain, anal bleeding, blood in stool, constipation, diarrhea, rectal pain and vomiting. Genitourinary: Negative for dysuria. Musculoskeletal: Negative for neck pain. Neurological: Positive for headaches. Negative for dizziness, tremors, seizures, syncope, facial asymmetry, speech difficulty, weakness, light-headedness and numbness. Physical Exam: ED Triage Vitals [04/15/242011] Weight 145.2 kg (320 lb) Actual or estimated Actual Height 1.575 m (5' 2") BP 137/46 Pulse 89 Resp 20 Temp 37 ?C (98.6 ?F) Temp source Oral SpO2 98 % Measured on Room air Physical Exam Vitals and nursing note reviewed. Constitutional: General: She is not in acute distress. Appearance: She is well-developed. She is not diaphoretic. HENT: Head: Normocephalic and atraumatic. Eyes: General: No scleral icterus. Right eye: No discharge. Left eye: No discharge. Conjunctiva/sclera: Conjunctivae normal. Cardiovascular: Rate and Rhythm: Normal rate and regular rhythm. Heart sounds: Normal heart sounds. No murmur heard. No friction rub. No gallop. Pulmonary: Effort: Pulmonary effort is normal. No respiratory distress. Breath sounds: Normal breath sounds. No wheezing. Chest: Chest wall: No tenderness. Abdominal: General: There is no distension. Palpations: Abdomen is soft. There is no mass. Tenderness: There is no abdominal tenderness. There is no guarding or rebound. Musculoskeletal: Cervical back: Neck supple. Skin: General: Skin is warm and dry. Capillary Refill: Capillary refill takes less than 2 seconds. Neurological: General: No focal deficit present. Mental Status: She is alert and oriented to person, place, and time. Mental status is at baseline. Cranial Nerves: No cranial nerve deficit. Sensory: No sensory deficit. Motor: No weakness. Coordination: Coordination normal. Gait: Gait normal. Psychiatric: Behavior: Behavior normal. Radiology: CT HEAD WO CONTRAST Preliminary Result EXAM: CT HEAD WO CONTRAST HISTORY: 39 years-old Female; Provided indication: Headache, chronic, new features or increased frequency . History obtained from [facility]: Migraines, dizziness, and blurry vision. Glucose 473. TECHNIQUE: Axial CT of the head was performed and reconstructed at 5 mm intervals. Coronal and sagittal reformatted images were generated. COMPARISON: None FINDINGS: The ventricles and cerebral sulci are normal in caliber and configuration. No midline shift or pathological extra-axial fluid collection is present. The basal cisterns are unremarkable. No acute intracranial hemorrhage or significant mass effect is visualized. No parenchymal attenuation abnormality is seen. The felder-white matter differentiation is preserved. The mastoid air cells and paranasal air sinuses are clear. The calvarium and central skull base are unremarkable. IMPRESSION No acute intracranial abnormality. Preliminary Report Dictated by Resident: Delfino Ramos Lab Results: Lab Results POCT GLUCOSE (AUTOMATED) - Abnormal Result Value Ref Range POCT GLU 463 (*) 70 - 110 mg/dL COMP. METABOLIC PANEL (56346) - Abnormal NA 133 (*) 135 - 145 mmol/L K 3.7 3.5 - 5.0 mmol/L CL 102 98 - 108 mmol/L CO2 TOTAL 24 23 - 31 mmol/L AGAP 7 2 - 16 BUN 11 7 - 23 mg/dL GLUCOSE 473 (*) 70 - 110 mg/dL CREATININE 0.61 0.50 - 1.04 mg/dL TOTAL BILI 0.4 0.1 - 1.1 mg/dL CALCIUM 8.8 8.6 - 10.6 mg/dL T PROTEIN 6.9 6.3 - 8.2 g/dL ALBUMIN 3.6 3.5 - 5.0 g/dL ALK PHOS 106 34 - 122 U/L ALTv 74 (*) 5 - 35 U/L AST(SGOT) 47 (*) 13 - 40 U/L eGFR 115.4 mL/min/1.73m2 AC PANEL 21 + LACTIC ACID - Abnormal PH 7.36 7.32 - 7.42 PCO2 KAMARI 42 41 - 51 mmHg PO2 KAMARI 46 (*) 25 - 40 mmHg HCO3 KAMARI 23 (*) 24 - 28 mEq/L AC VBE(BEAKER) -2.2 mEq/L THB KAMARI 13.7 12.0 - 16.0 g/dL %O2HB KAMARI 81.9 (*) 52.0 - 63.0 % %COHB KAMARI 1.8 (*) 0.0 - 1.5 % %METHB KAMARI 0.3 (*) 0.4 - 1.5 % VOL%O2 KAMARI 15.7 (*) 6.0 - 12.0 % NA 136 135 - 145 mmol/L K+ 3.7 3.5 - 5.0 mmol/L AC CA IONZ 4.60 4.50 - 5.30 mg/dL GLUCOSE 482 (*) 70 - 110 mg/dL LACTIC ACID 2.97 (*) 0.50 - 2.20 mmol/L POCT GLUCOSE (AUTOMATED) - Abnormal POCT GLU 373 (*) 70 - 110 mg/dL CBC WITH DIFF WBC 7.89 4.30 - 11.10 10*3/?L RBC 4.68 3.93 - 5.25 10*6/?L HGB 13.1 11.6 - 15.0 g/dL HCT 40.2 35.7 - 45.2 % MCV 85.9 80.6 - 95.5 fL MCH 28.0 25.9 - 32.8 pg MCHC 32.6 31.6 - 35.1 g/dL RDW-SD 40.3 39.0 - 49.9 fL RDW-CV 13.0 12.0 - 15.5 % PLT 229 166 - 358 10*3/?L MPV 10.6 9.5 - 12.9 fL NRBC/100 WBC 0.0 0.0 - 10.0 /100 WBCs NRBC x10 3 <0.01 10*3/?L GRAN MAT (NEUT) % 50.3 % IMM GRAN % 0.30 % LYMPH % 39.9 % MONO % 7.4 % EOS % 1.5 % BASO % 0.6 % GRAN MAT x10 3 (ANC) 3.97 1.88 - 7.09 10*3/uL IMM GRAN x10 3 <0.03 0.00 - 0.06 10*3/uL LYMPH x10 3 3.15 1.32 - 3.29 10*3/uL MONO x10 3 0.58 0.33 - 0.92 10*3/uL EOS x10 3 0.12 0.03 - 0.39 10*3/uL BASO x10 3 0.05 0.01 - 0.07 10*3/uL POCT GLUCOSE(AGE >30DAYS) EKG: If EKG completed, see Procedure Note. Orders and Treatments: Orders Placed This Encounter Procedures CT HEAD WO CONTRAST Cbc with Diff Comp. Metabolic Panel (93907) AC Panel 21 + Lactic Acid POCT GLUCOSE (AUTOMATED) Orders Placed This Encounter Medications metoclopramide HCl (REGLAN) injection 10 mg diphenhydrAMINE (BENADRYL) injection 25 mg acetaminophen (TYLENOL) tablet 1,000 mg NaCl 0.9% (NS) bolus infusion 500 mL First Provider Eval: ED Events Date/Time Event User Comments 04/15/242020 Medical Screening Begins FRANCISCA STAFFORD MD -- 04/15/242020 First Provider Evaluation FRANCISCA STAFFORD MD -- ED COURSE Diagnosis/Impression as of 04/15/242204 Hyperglycemia Headache, unspecified headache type Procedures: Procedures MDM: Medical Decision Making Lita Jalloh is a 39 year old female presenting with headache symptoms as above. Patient had CT given headache felt somewhat different from prior headaches, CT head unremarkable. Patient received headache cocktail and headache now resolved following headache cocktail. Patient with hyperglycemia on labs but no signs of DKA. Patient received IV fluids and insulin with glucose down trending. Given headache now resolved will discharge home. Patient given referral to neurology for likely migraine headaches. Problems Addressed: Headache, unspecified headache type: acute illness or injury Hyperglycemia: acute illness or injury Amount and/or Complexity of Data Reviewed Labs: ordered. Radiology: ordered. Risk OTC drugs. Prescription drug management. Flowsheet Documentation: Scoring Tools: No data recorded Disposition/Condition: ED Disposition ED Disposition Discharge Condition Stable Comment -- Discharge Medications: Patient's Medications START taking these medications No medications on file CONTINUE taking these medications which have NOT CHANGED BENZONATATE 200 MG CAPSULE Take 1 capsule by mouth 3 (three) times daily as needed for Cough. CIPROFLOXACIN HCL 500 MG TABLET Take 1 tablet by mouth 2 (two) times daily. IBUPROFEN 800 MG TABLET Take 1 tablet by mouth every 8 (eight) hours as needed for Pain (scale 4-6) or Temp > 38.5 C. PHENAZOPYRIDINE 200 MG TABLET Take 1 tablet by mouth 3 (three) times daily. SILVER SULFADIAZINE 1 % CREAM Apply to area(s) 2 (two) times daily. SULFAMETHOXAZOLE-TRIMETHOPRIM 800-160 MG PER TABLET Take 1 tablet by mouth every 12 (twelve) hours. START taking Modified Medications as Prescribed No medications on file STOP taking these medications No medications on file Follow-up: Electronically signed by: Francisca Stafford MD 04/15/243 [facility] 2024-01-15 03:59:39 Pt given printed and verbal discharge instructions regarding viral syndrome, & palpitations, encouraged hydration. Prescriptions provided Pt verbalized understanding of instructions, pt awake alert oriented, resp reg unlabored, skin w/d, color appropriate for race, moves all ext well,pt encouraged to follow up with pcp. Advised to seek medical attention for new/prolonged/worsening of symptoms. No adverse reaction to meds given in ER noted upon discharge PIV d'cd, dressing to site, catheter in tact. Awake, alert oriented, resp reg unlabored, skin w/d, pt leaving amb with steady gait, in no apparent distress. [facility] 2024-01-14 23:22:36 Pt arrives ambulatory to ED c/o coughing and fluttering in chest x 2 days. States the symptoms have become worse today. Diana Arellano RN [facility] 2023-12-23 21:37:11 Pt given printed and verbal discharge instructions regarding uncontrolled type 2 diabetes mellitus with hyperglycemia, elevated liver enzymes, noncompliance with medication regimen, encouraged hydration, 0 Prescriptions provided Pt verbalized understanding of instructions, pt awake alert oriented, resp reg unlabored, skin w/d, color appropriate for race, moves all ext well,pt encouraged to follow up with pcp. Advised to seek medical attention for new/prolonged/worsening of symptoms, Symptoms improved. No adverse reaction to meds given in ER noted upon discharge PIV d'cd, dressing to site, catheter in tact. Awake, alert oriented, resp reg unlabored, skin w/d, pt leaving amb with steady gait, in no apparent distress, Keisha Bar RN [facility] 2023-12-23 19:13:08 CC: blurred vision, pt is concerned about BG. Pt check BG 20 min INSPECTION CLERK, and it was 471 PMH: T2DM Julia Blount RN [facility] 2023-02-16 22:45:56 Formatting of this n ote might be different from the original. Pt given printed and verbal discharge instructions regarding how to check your blood sugar, checking your blood sugar, self-care for headaches, understanding headache pain, encouraged hydration. Discussed ibuprofen and to take with food to avoid GI distress. Pt verbalized understanding of instructions, pt awake alert oriented, resp reg unlabored, skin w/d, color appropriate for race, moves all ext well,pt encouraged to follow up with pcp. Advised to seek medical attention for new/prolonged/worsening of symptoms. No adverse reaction to meds given in ER noted upon discharge PIV d'cd, dressing to site, catheter in tact. Awake, alert oriented, resp reg unlabored, skin w/d, pt leaving amb with steady gait, in no apparent distress. Diana Arellano RN [facility] 2023-02-16 20:11:42 Formatting of this n ote might be different from the original. Pt presents with pounding headache since this a.m. and elevated Blood sugar 324. Pt states she has taken tylenol. Last dose 1 hr ago Pt rates headache 12/20. Kassandra Parrish RN [facility]
[2024-10-11 13:40] LABS: Absolute Eosinophils 0.1 K/uL (0-0.5); Absolute Lymphocytes (CBC) 3.2 K/uL (0.7-4.9); Absolute Monocytes 0.6 K/uL (0.1-1.3); Absolute Neutrophil 3.8 K/uL (1.8-8.0); Basophils % 0.5 % (0-1.3); Eosinophils % 1.4 % (0-4.4); Hematocrit 40.1 % (36.0-45.0); Hemoglobin 13.3 g/dL (12.0-15.0); Lymphocytes % 41.4 % (15.3-44.8); MCH 29.3 pg (27.0-35.0); MCHC 33.3 g/dL (32.0-36.0); MPV 9.2 fL (7.6-11.3); Monocytes % 7.6 % (3.3-12.3); Neutrophils % 49.1 % (41.7-73.7); Nucleated Red Blood Cells % 0.1 % (0-0); Platelets 218 thou/uL (152-406); RBC Red Blood Cell Count 4.55 M/uL (3.86-4.86); Red Cell Distribution Width 13.8 % (12.1-15.2)
[2024-10-11] MEDS ORDERED: NA CHLORIDE 0.9% 1,000 ML ONE (16:12)
[2024-10-11] MEDS ORDERED: KETOROLAC 30 MG/ML INJ ONE (16:12)
[2024-10-11] MEDS ORDERED: ONDANSETRON 4 MG/2 ML VIAL ONE (16:12)
[2024-10-11] MEDS ORDERED: MORPHINE 4 MG/ML SYR ONE (16:12)
[2024-10-11] MEDS ORDERED: FAMOTIDINE 20 MG/2 ML VIAL IV ONE (16:12)
--- NOTE | 2024-10-11 17:43 | RAD REPORT ---
EXAMINATION: US BILATERAL LOWER EXTREMITY VENOUS DOPPLER CLINICAL INDICATION: PAIN TECHNIQUE: Complete bilateral duplex sonography of the BILATERAL lower extremity veins was performed. The examination included compression for vein patency, color Doppler imaging and flow augmentation in response to distal compression of the distal external iliac, common femoral, femoral, popliteal, t ibial, and great and small saphenous veins. COMPARISON: No prior exam. FINDINGS: Duplex sonography testing of the veins of the BILATERAL lower extremity was performed. Color flow atiya ging shows all veins to be compressible with [id number] color filling. Pulsatile and phasic flow is present within all lower extremity deep and superficial veins examined. IMPRESSION: There is no deep vein or superficial vein thrombosis.
[2024-10-11 18:34] LABS: Albumin 2.9 g/dL (3.4-5.0); Albumin/Globulin Ratio 0.7 (1.1-1.8); Anion Gap 10.6 mEq/L (5.0-15.0); Bilirubin Total 0.3 mg/dL (0.2-1.0); Globulin 4.1 g/dL (2.3-3.5); Potassium 3.6 mEq/L (3.5-5.1)
--- NOTE | 2024-10-11 18:40 | RAD REPORT ---
EXAMINATION: CTA CHEST PE CLINICAL INDICATION: CHEST PAIN TECHNIQUE: This examination was performed according to an angiographic protocol with 3D post-processi ng. This involves 3D reconstructions, MIPs, volume rendered images and/or shaded surface rendering. One or more of the following dose reduction techniques were used: Automated exposure control, adjustm ent of the mA and/or kV according to patient size, and/or iterative reconstruction. Unless otherwise specified, incidental findings do not require dedicated imaging follow-up. COMPARISON: No prior exam. FINDINGS: PULMONARY ARTERIES: Normal caliber. No evidence of pulmonary emboli to the subsegmental level. THORACIC AORTA: Normal caliber and configuration. LUNGS: No evidence of airspace or interstitial process. No nodules. PLEURA: No pleural effusion. No pneumothorax. MEDIASTINUM AND LYMPH NODES: No mediastinal mass or fluid collection. Normal size mediastinal, hilar, and axillary lymph nodes. OSSEOUS STRUCTURES AND CHEST WALL: Intact. Thoracic spondylosis. UPPER ABDOMEN: No significant abnormalities. IMPRESSION: No evidence of pulmonary emboli to the subsegmental level.
--- NOTE | 2024-10-11 18:46 | RAD REPORT ---
EXAMINATION: CT ABDOMEN AND PELVIS WITH CONTRAST CLINICAL INDICATION: ABD PAIN TECHNIQUE: CT abdomen and pelvis was performed, after the administration of IV contrast, as per [facility] protocol. Axial, sagittal and coronal reconstructions were obtained. One or more of the following dose reduction techniques were used: Automated exposure control, adjustment of the mA and k V according to patient size, and iterative reconstruction. Unless otherwise specified, incidental findings do not require dedicated imaging follow-up. COMPARISON: No prior exam. FINDINGS: LOWER CHEST: The visualized lung bases are clear. Postsurgical changes about the stomach. LIVER: Normal in size and contour. No focal lesion. Cholelithiasis. SPLEEN: Normal size. No focal lesion. PANCREAS: No mass, ductal dilation, or luc-pancreatic fluid. ADRENALS: Normal; no mass. KIDNEYS: Normal size and contour. No hydronephrosis. GASTROINTESTINAL TRACT: No evidence of free air, significant intra-abdominal free fluid, bowel obstru ction or abscess. There is mild diverticulosis coli of the sigmoid colon without diverticulitis. APPENDIX: Normal appendix. LYMPH NODES: No lymphadenopathy. MUSCULOSKELETAL: No acute or suspicious osseous abnormality. ADDITIONAL FINDINGS: None. IMPRESSION: No acute or concerning abnormalities seen in the abdomen or pelvis. Cholelithiasis. Prominent sigmoid diverticulosis coli without diverticulitis.
--- NOTE | 2024-10-11 19:34 | EDPHYS ---
Physician Documentation [facility] Name: Natalie Estrella Age: 39 yrs Sex: Female : 1985 Arrival Date: 10/11/2024 Time: 12:06 Bed 17 Private MD: ED Physician Vu Parks HPI: 10/11 16:54 This 39 yrs old Female presents to ER via Ambulatory with complaints of LT constanza Side ABD Pain. 16:54 The patient presents with abdominal pain in the upper abdomen, in the lower abdomen, constanza abdominal distention in the upper abdomen, in the lower abdomen. Onset: The symptoms/episode began/occurred 1 day(s) ago. The symptoms do not radiate. Associated signs and symptoms: Pertinent positives: shortness of breath. Modifying factors: The symptoms are alleviated by remaining still, the symptoms are aggravated by coughing, breathing deeply, movement, pressure. Severity of pain: At its worst the pain was moderate in the emergency department the pain is unchanged. The patient has experienced similar episodes in the past, a few times. Historical: - Allergies: 12:41 No Known Allergies; jl7 - Home Meds: 12:41 None [Active]; jl7 - PMHx: 12:41 diabetes mellitus; jl7 - PSHx: 12:41 section; hysterectomy; gastric bypass; jl7 - Immunization history:: Adult Immunizations up to date. - Infectious Disease History:: Denies. - Family history:: not pertinent. - Social history:: Smoking status: Patient denies any tobacco usage or history of. ROS: 16:54 Constitutional: Negative for fever, chills, and weight loss, Eyes: Negative for injury, constanza pain, redness, and discharge, ENT: Negative for injury, pain, and discharge, Neck: Negative for injury, pain, and swelling, Cardiovascular: Negative for chest pain, palpitations, and edema, Back: Negative for injury and pain, : Negative for injury, bleeding, discharge, and swelling, MS/Extremity: Negative for injury and deformity, Skin: Negative for injury, rash, and discoloration, Neuro: Negative for headache, weakness, numbness, tingling, and seizure, Psych: Negative for depression, anxiety, suicide ideation, homicidal ideation, and hallucinations, Allergy/Immunology: Negative for hives, rash, and allergies, Endocrine: Negative for neck swelling, polydipsia, polyuria, polyphagia, and marked weight changes, Hematologic/Lymphatic: Negative for swollen nodes, abnormal bleeding, and unusual bruising, 16:54 Respiratory: Positive for pleurisy, of the left lateral posterior chest and left lateral anterior chest, 16:54 Abdomen/GI: Positive for abdominal pain, of the left upper quadrant, 16:54 MS/extremity: Negative for acute changes, Exam: 16:54 Constitutional: This is a well developed, well nourished patient who is awake, alert, constanza and in no acute distress. Head/Face: Normocephalic, atraumatic. Eyes: Pupils equal round and reactive to light, extra-ocular motions intact. Lids and lashes normal. Conjunctiva and sclera are non-icteric and not injected. Cornea within normal limits. Periorbital areas with no swelling, redness, or edema. ENT: Nares patent. No nasal discharge, no septal abnormalities noted. Tympanic membranes are normal and external auditory canals are clear. Oropharynx with no redness, swelling, or masses, exudates, or evidence of obstruction, uvula midline. Mucous membranes moist. Neck: Trachea midline, no thyromegaly or masses palpated, and no cervical lymphadenopathy. Supple, full range of motion without nuchal rigidity, or vertebral point tenderness. No Meningismus. Chest/axilla: Normal chest wall appearance and motion. Nontender with no deformity. No lesions are appreciated. Cardiovascular: Regular rate and rhythm with a normal S1 and S2. No gallops, murmurs, or rubs. Normal PMI, no JVD. No pulse deficits. Respiratory: Lungs have equal breath sounds bilaterally, clear to auscultation and percussion. No rales, rhonchi or wheezes noted. No increased work of breathing, no retractions or nasal flaring. Back: No spinal tenderness. No costovertebral tenderness. Full range of motion. Skin: Warm, dry with normal turgor. Normal color with no rashes, no lesions, and no evidence of cellulitis. MS/ Extremity: Pulses equal, no cyanosis. Neurovascular intact. Full, normal range of motion., bilateral aka Neuro: Awake and alert, GCS 15, oriented to person, place, time, and situation. Cranial nerves II-XII grossly intact. Motor strength 5/5 in all extremities. Sensory grossly intact. Cerebellar exam normal. Normal gait. Psych: Awake, alert, with orientation to person, place and time. Behavior, mood, and affect are within normal limits. 16:54 Abdomen/GI: Inspection: abdomen appears normal, Bowel sounds: normal, Palpation: mild abdominal tenderness, in the left upper quadrant, Liver: no appreciated palpable abnormalities, Hernia: not appreciated, 16:54 Musculoskeletal/extremity: DVT Exam: No signs of deep vein thrombosis. no pain, no swelling, no tenderness, negative Homans' sign noted on exam, no appreciated bluish discoloration, no erythema, no increased warmth, Vital Signs: 12:39 BP 114 / 70; Pulse 70; Resp 17; Temp 97; Pulse Ox 98% ; Weight 122.92 kg; Height 5 ft. jl7 2 in. ; Pain 8/10; 16:10 BP 111 / 74; Pulse 48; Resp 16; Pulse Ox 96% ; db 17:30 BP 111 / 58; Pulse 48; Resp 16; Pulse Ox 98% on R/A; db 18:00 BP 113 / 70; Pulse 46; Resp 16; Pulse Ox 100% on R/A; db 20:08 BP 132 / 57; Pulse 48; Resp 16 S; Pulse Ox 100% on R/A; lg3 12:39 Body Mass Index 49.57 (122.92 kg, 157.48 cm) jl7 12:39 Pain Scale: Adult jl7 MDM: 12:12 Medical Screening Exam initiated [facility] 17:02 Differential diagnosis: bowel obstruction, diverticulitis, Dysmenorrhea, Mesenteric constanza ischemia or infarction, non-specific abd pain, pancreatitis, Peptic Ulcer Disease, Ureterolithiasis, urinary tract infection. Data reviewed: vital signs, nurses notes, lab test result(s), EKG, radiologic studies, CT scan, plain films. Consideration of Admission/Observation Escalation of care including admission/observation considered. I considered the following discharge prescriptions or medication management in the emergency department Medications were administered in the Emergency Department. See MAR. Independent interpretation of the following test(s) in the Emergency Department CT Scan: My interpretation is CT PE, CT AB/PEL. Test considered but Not performed: Ultrasound NO ABD USG. 17:05 Test considered but Not performed: Ultrasound NO ABD USG. Historians other than the [facility] Patient: PT WELL INFORMED. Care significantly affected by the following chronic conditions: Diabetes, Obesity. Counseling: I had a detailed discussion with the patient and/or guardian regarding the historical points, exam findings, and any diagnostic results supporting the discharge/admit diagnosis, lab results, radiology results, the need for outpatient follow up, for definitive care, a family practitioner. 10/11 12:13 Order name: CBC with Diff; Complete Time: 16:[address] [facility] 10/11 12:13 Order name: CMP; Complete Time: 19:[address] [facility] 10/11 12:13 Order name: Lipase; Complete Time: 19:[address] [facility] 10/11 12:13 Order name: CT Abd/Pelvis - IV Contrast Only; Complete Time: 19:[address] [facility] 10/11 16:53 Order name: CT Chest For PE Angio; Complete Time: 19:[address] [facility] 10/11 17:02 Order name: INCENTIVE SPIROMETRY [facility] 10/11 17:02 Order name: US Extremity Venous W Compression George; Complete Time: 17:[address] [facility] 10/11 12:13 Order name: IV Saline Lock; Complete Time: 15:[address] [facility] 10/11 12:13 Order name: Labs collected and sent; Complete Time: 15:[address] [facility] Administered Medications: 16:15 Drug: Famotidine IVP 20 mg IVP once; dilute with 10 mL 0.9% NaCl; give over 2 minutes db Route: IVP; Site: left antecubital; 19:59 Follow up: Response: No adverse reaction lg3 16:15 Drug: TORadol - Ketorolac IVP 15 mg IVP once Route: IVP; Site: left antecubital; db 19:58 Follow up: Response: No adverse reaction; Marked relief of symptoms lg3 16:15 Drug: Ondansetron IVP 4 mg IVP once; over 2 minutes Route: IVP; Site: left antecubital; db 19:58 Follow up: Response: No adverse reaction; Marked relief of symptoms lg3 16:15 Drug: morphine IVP or IV 4 mg IVP once over 4 mins Route: IVP; Infused Over: 4 mins; db Site: left antecubital; 19:58 Follow up: Response: No adverse reaction; Marked relief of symptoms lg3 16:15 Drug: NS 0.9% IV 1000 ml IV at 1 bolus Per protocol; to be given as a bolus over 60 db minutes Route: IV; Rate: 1 bolus; Site: left antecubital; 19:58 Follow up: Response: No adverse reaction; IV Status: Completed infusion; IV Intake: lg3 1000ml Disposition Summary: 10/11/24 19:33 Discharge Ordered Notes: Location: Home [facility] Problem: new [facility] Symptoms: have improved constanza Condition: Stable constanza Diagnosis - Abdominal pain, unspecified constanza - Pleurisy constanza - Obesity, unspecified constanza - Type 2 diabetes mellitus with hyperglycemia [facility] Followup: [facility] - With: Private Physician - When: 2 - 3 days - Reason: Recheck today's complaints, Continuance of care, Re-evaluation by your physician Discharge Instructions: - Discharge Summary Sheet constanza - Abdominal Pain, Adult constanza - Hyperglycemia constanza - Obesity, Adult constanza - Pleurisy [facility] - How to Use an Incentive Spirometer [facility] - Diabetes Mellitus and Nutrition, Adult constanza - Pleurisy, [id number] constanza - Obesity, Adult, [id number] [facility] Forms: - Medication Reconciliation Form [facility] - Antibiotic Education [facility] - Prescription Opioid Use [facility] - Patient Portal Instructions [facility] - Leadership Thank You Letter [facility] Prescriptions: - diclofenac sodium 50 mg Oral tablet, delayed release (enteric coated) - take 1 tablet ORAL route 3 times per day; 30 tablet; Refills: 0, Product [facility] Selection Permitted - Pepcid 20 mg Oral Tablet - take 1 tablet ORAL route every 12 hours for 10 days; 20 tablet; Refills: 0, [facility] Product Selection Permitted - dicyclomine 20 mg Oral tablet - take 1 tablet ORAL route 4 times per day; 28 tablet; Refills: 0, Product [facility] Selection Permitted - Tylenol-Codeine #3 300mg-30mg Oral tablet - take 2 tablets ORAL route every 6 hours As needed; 16 tablet; Refills: 0, [facility] Product Selection Permitted Signatures: Dispatcher [employer] Vu Bell MD MD cha Leal, Jahala, RN RN jl7 Krystal Myles RN RN lg3 Karime Chamberlain, RN RN db
--- NOTE | 2024-10-11 19:34 | ER ---
Nurse's Notes [facility] Name: Natalie Estrella Age: 39 yrs Sex: Female : 1985 Arrival Date: 10/11/2024 Time: 12:06 Bed 17 Private MD: Diagnosis: Abdominal pain, unspecified;Pleurisy;Obesity, unspecified;Type 2 diabetes mellitus with hyperglycemia Presentation: 10/11 12:39 Chief complaint: Patient states: Left sided abdominal pain since yesterday, nausea jl7 yesterday but none today. Coronavirus screen: At this time, the client does not indicate any symptoms associated with coronavirus-19. Ebola Screen: No symptoms or risks identified at this time. Initial Sepsis Screen: Does the patient meet any 2 criteria? No. Patient's initial sepsis screen is negative. Does the patient have a suspected source of infection? No. Patient's initial sepsis screen is negative. Risk Assessment: Do you want to hurt yourself or someone else? Patient reports no desire to harm self or others. Onset of symptoms was October 10, 2024. 12:39 Method Of Arrival: Ambulatory [facility] 12:39 Acuity: LIO 3 jl7 Historical: - Allergies: 12:41 No Known Allergies; jl7 - Home Meds: 12:41 None [Active]; jl7 - PMHx: 12:41 diabetes mellitus; jl7 - PSHx: 12:41 section; hysterectomy; gastric bypass; jl7 - Immunization history:: Adult Immunizations up to date. - Infectious Disease History:: Denies. - Family history:: not pertinent. - Social history:: Smoking status: Patient denies any tobacco usage or history of. Screenin:00 [facility] ED Fall Risk Assessment (Adult) History of falling in the last 3 months, db including since admission No falls in past 3 months (0 pts) Confusion or Disorientation No (0 pts) Intoxicated or Sedated No (0 pts) Impaired Gait No (0 pts) Mobility Assist Device Used No (0 pt) Altered Elimination No (0 pt) Score/Fall Risk Level 0 - 2 = Low Risk Oriented to surroundings, Maintained a safe environment. Abuse screen: Denies threats or abuse. Denies injuries from another. Nutritional screening: No deficits noted. Tuberculosis screening: No symptoms or risk factors identified. Assessment: 15:02 Reassessment: Patient appears in no apparent distress at this time. Patient and/or db family updated on plan of care and expected duration. Pain level reassessed. Patient is alert, oriented x 3, equal unlabored respirations, skin warm/dry/pink. PT ARRIVAL TO ROOM 17. General: Appears in no apparent distress. comfortable, Behavior is calm, cooperative. 20:08 General: Appears in no apparent distress. comfortable, Behavior is calm, cooperative. lg3 Pain: Complains of pain in left lateral anterior chest and left lateral posterior chest Pain does not radiate. Pain currently is 2 out of 10 on a pain scale. Neuro: No deficits noted. Huntley Agitation-Sedation Scale (RASS): 0 - Alert and Calm Level of Consciousness is awake, alert, obeys commands, Oriented to person, place, time, situation. Cardiovascular: No deficits noted. Denies chest pain, shortness of breath, Capillary refill < 3 seconds Clubbing of nail beds is absent JVD is absent Patient's skin is warm and dry. Respiratory: No deficits noted. Reports pain with respiration Airway is patent Respiratory effort is even, unlabored, Respiratory pattern is regular, symmetrical, Breath sounds are clear bilaterally. GI: No deficits noted. Abdomen is round non-distended, obese. : No deficits noted. No signs and/or symptoms were reported regarding the genitourinary system. EENT: No deficits noted. No signs and/or symptoms were reported regarding the EENT system. Derm: No deficits noted. No signs and/or symptoms reported regarding the dermatologic system. Skin is intact, is healthy with good turgor, Skin is dry, Skin is normal, Skin temperature is warm. Musculoskeletal: No deficits noted. No signs and/or symptoms reported regarding the musculoskeletal system. Circulation, motion, and sensation intact. Range of motion: intact in all extremities. Vital Signs: 12:39 BP 114 / 70; Pulse 70; Resp 17; Temp 97; Pulse Ox 98% ; Weight 122.92 kg; Height 5 ft. jl7 2 in. ; Pain 8/10; 16:10 BP 111 / 74; Pulse 48; Resp 16; Pulse Ox 96% ; db 17:30 BP 111 / 58; Pulse 48; Resp 16; Pulse Ox 98% on R/A; db 18:00 BP 113 / 70; Pulse 46; Resp 16; Pulse Ox 100% on R/A; db 20:08 BP 132 / 57; Pulse 48; Resp 16 S; Pulse Ox 100% on R/A; lg3 12:39 Body Mass Index 49.57 (122.92 kg, 157.48 cm) jl7 12:39 Pain Scale: Adult 7 ED Course: 12:11 Patient arrived in ED. cj3 12:12 Vu Parks MD is Attending Physician. constanza 12:41 Triage completed. jl7 13:19 Inserted saline lock: 20 gauge in left antecubital area, using aseptic technique. Blood nh2 collected. Flushed with 10 mL NS. 13:19 CBC with Diff Sent. nh2 13:19 CMP Sent. nh2 13:19 Lipase Sent. nh2 15:02 Karime Chamberlain, RN is Primary Nurse. db 15:02 Arm band placed on Patient placed in an exam room. db 17:34 US Extremity Venous W Compression George In Process Unspecified. EDMS 18:37 CT Abd/Pelvis - IV Contrast Only In Process Unspecified. EDMS 18:37 CT Chest For PE Angio In Process Unspecified. EDMS 19:06 Patient has correct armband on for positive identification. Bed in low position. Call db light in reach. Side rails up X 1. Pulse ox on. NIBP on. Warm blanket given. Pillow given. 19:58 INCENTIVE SPIROMETRY Sent. lg3 20:08 No provider procedures requiring assistance completed. IV discontinued, intact, lg3 bleeding controlled, No redness/swelling at site. Pressure dressing applied. 20:10 Provided Education on: incentive spirometer. lg3 Administered Medications: 16:15 Drug: Famotidine IVP 20 mg IVP once; dilute with 10 mL 0.9% NaCl; give over 2 minutes db Route: IVP; Site: left antecubital; 19:59 Follow up: Response: No adverse reaction lg3 16:15 Drug: TORadol - Ketorolac IVP 15 mg IVP once Route: IVP; Site: left antecubital; db 19:58 Follow up: Response: No adverse reaction; Marked relief of symptoms lg3 16:15 Drug: Ondansetron IVP 4 mg IVP once; over 2 minutes Route: IVP; Site: left antecubital; db 19:58 Follow up: Response: No adverse reaction; Marked relief of symptoms lg3 16:15 Drug: morphine IVP or IV 4 mg IVP once over 4 mins Route: IVP; Infused Over: 4 mins; db Site: left antecubital; 19:58 Follow up: Response: No adverse reaction; Marked relief of symptoms lg3 16:15 Drug: NS 0.9% IV 1000 ml IV at 1 bolus Per protocol; to be given as a bolus over 60 db minutes Route: IV; Rate: 1 bolus; Site: left antecubital; 19:58 Follow up: Response: No adverse reaction; IV Status: Completed infusion; IV Intake: lg3 1000ml Medication: 20:08 VIS not applicable for this client. lg3 Intake: 19:58 IV: 1000ml; Total: 1000ml. lg3 Outcome: 19:33 Discharge ordered by . constanza 20:08 Discharged to home ambulatory, lg3 20:08 Condition: stable 20:08 Discharge instructions given to patient, Instructed on discharge instructions, follow up and referral plans. medication usage, incentive spirometer Demonstrated understanding of instructions, follow-up care, medications, Prescriptions given X 4, 20:11 Patient left the ED. lg3 Signatures: Dispatcher [employer] EDVu Lou MD MD cha Leal, Jahala, RN RN jl7 Krystal Myles RN RN lg3 Karime Chamberlain, RN RN dana Holland Jr, Mattie Patiño 3
[2024-10-11 20:28] VITALS: TEMP 97
[2024-10-11 20:33] VITALS: O2SAT 100
[2024-10-11 20:34] VITALS: BP 132/57
== END 2024-10-11 20:11 | disposition home or self-care (01) ==
LOC: ER 12:06
DX: R10.12 Left upper quadrant pain (principal); R09.1 Pleurisy; E11.65 Type 2 diabetes mellitus with hyperglycemia; E66.9 Obesity, unspecified
CPT/HCPCS: 96361; 85025; 36415; 82565; 83690; 80053; 71275; 74177; 93970; 96375; 96374; 99284; Q9967; J2405; J7030